=== PATIENT | female | born 1965 | race Caucasian/White ===

== ENCOUNTER 2022-12-12 14:46 | Emergency (ER) | payer BC, SELFPAY ==
[2022-12-12 15:08] VITALS: BP 149/89; PULSE 72; RESP 18; TEMP 37.4; O2SAT 100; BMI 21.4
--- NOTE | 2022-12-12 16:01 | CRLHL7_ITS ---
For Patients: As a result of the Cures Act, medical imaging exams and procedure reports are released immediately into your electronic medical record. You may view this report before your referring provider. If you have questions, please contact your health care provider. HISTORY: Injury. Fall in the shower. TECHNIQUE: Frontal view the chest and 2 views of the left ribs. COMPARISON: None. FINDINGS: No airspace consolidation. No pleural effusion or pneumothorax. Pulmonary vasculature and cardiomediastinal silhouette are unremarkable. No left rib fractures. IMPRESSION: No acute findings. No left rib fractures. Dictated by Jordy Troncoso MD @ 12/12/2022 4:55:27 PM (Electronically Signed)
[2022-12-12 16:46] VITALS: BP 156/85; PULSE 62; O2SAT 100
--- NOTE | 2022-12-12 16:53 | ED.GENADULT ---
HPI - General Adult General Chief complaint: Back Injury/Pain Stated complaint: Fell this morning, injured upper back Time Seen by Provider: 12/12/22 15:44 Source: patient Mode of arrival: ambulatory Limitations: no limitations History of Present Illness HPI narrative: Patient is a 57-year-old female coming in today complaining of left-sided upper back pain. She states that she was in the shower this morning she slipped and fell backwards hitting her left upper back on the built-in bench in the shower. She states that she has difficulty taking deep breaths. She denies other injury. No neck or central back pain. She has been walking and talking normally since she fell earlier this morning which was several hours ago. She has no headache, blurry vision, nausea vomiting. She is not short of breath. She denies any buttocks or abdominal discomfort. No anterior chest pain. Related Data Home Medications Medication Instructions Recorded Confirmed candesartan 4 mg tablet 2 mg PO DAILY 12/12/22 12/12/22 estradiol 0.025 mg/24 hr 12/12/22 semiweekly transdermal patch levothyroxine 50 mcg tablet mcg 12/12/22 mycophenolate mofetil 250 mg mg PO 12/12/22 capsule progesterone micronized 100 mg mg 12/12/22 capsule sertraline 25 mg tablet 12.5 mg 12/12/22 Allergies Allergy/AdvReac Type Severity Reaction Status Date / Time No Known Drug Allergies Allergy Verified 12/12/22 15:13 Review of Systems Status of ROS: Reports: 10 or more systems reviewed and unremarkable except as noted in History and below PFSH PFS Social History Smoking Status: Never smoker How often do you have a drink containing alcohol: never AUDIT-C Alcohol total score: 0 Non-prescribed substance use: denies use Exam Narrative: Exam Narrative: Well-nourished well-developed patient in no acute distress. Alert and oriented. Answers questions appropriately. Mood and affect are appropriate. Thoughts are goal oriented and rational. No tangential or magical thinking noted. Patient speaks in full sentences without needing to catch her breath. Speech is not slurred or pressured. GCS is 15. HEENT: Normocephalic atraumatic. Pupils are equally round reactive to light. Extraocular muscles are intact. Conjunctivae are moist without any icterus noted. Moist mucous membranes. Posterior pharynx is normal. Neck is soft. She has full range of motion with flexion, extension, side way bending and rotation. She has no tenderness to palpation at the cervical spine. Cardiovascular: Heart is regular rate and rhythm S1 and S2 are present without any murmurs. Lungs: Clear to auscultation bilaterally no wheezes rhonchi or rales are appreciated. Patient takes deep breaths but it does cause her discomfort in the left upper back. Abdomen: Soft and nontender nondistended with normal bowel sounds. Skin: Well perfused without any obvious rashes. Back: No tenderness to palpation over the thoracic or lumbar spine. She has no CVA tenderness bilaterally. She does have tenderness over two ribs on the posterolateral left chest wall. Const: Vital Signs, click to edit/add: Vital Signs - 24 hr 12/12/22 15:08 12/12/22 16:46 Temperature 99.3 F Pulse Rate [Left P ulse Oximeter] 72 62 Respiratory Rate 18 Blood Pressure [Ri t Upper Arm] 149/89 H 156/85 H Pulse Oximetry 100 100 Oxygen Delivery Me thod Room Air Room Air Course Course Hospital Course: Rib x-rays were done, read by me, do not show any acute fracture. Radiologic over-read in agreement. Vital Signs Vital signs: Initial Vital Signs Temperature 99.3 F 12/12/22 15:08 Temperature Source Temporal Artery Scan 12/12/22 15:08 Pulse Rate 72 12/12/22 15:08 Respiratory Rate 18 12/12/22 15:08 Blood Pressure 149/89 H 12/12/22 15:08 Blood Pressure Mean 109 12/12/22 15:08 Blood Pressure Position Sitting 12/12/22 15:08 Pulse Oximetry 100 12/12/22 15:08 Oxygen Delivery Method 12/12/22 15:08 Vital Signs Temperature 99.3 F 12/12/22 15:08 Pulse Rate 72 12/12/22 15:08 Respiratory Rate 18 12/12/22 15:08 Blood Pressure 149/89 H 12/12/22 15:08 Pulse Oximetry 100 12/12/22 15:08 Oxygen Delivery Method 12/12/22 15:08 Temperature 99.3 F 12/12/22 15:08 Pulse Rate 62 12/12/22 16:46 Respiratory Rate 18 12/12/22 15:08 Blood Pressure 156/85 H 12/12/22 16:46 Pulse Oximetry 100 12/12/22 16:46 Oxygen Delivery Method 12/12/22 16:46 Medical Decision Making MDM Narrative Medical decision making narrative: 57-year-old female status post fall with posterolateral left-sided rib pain. Certainly could be a contusion versus an occult fracture that were not catching on x-ray. Treatment at this time is the same. We discussed Tylenol, heating pads, and narcotic pain medication as needed. Discussed reasons for follow-up. Patient had no other questions Imaging Data Rib x-ray: Attestation: I have reviewed the pertinent imaging results. Radiologist's impression: TECHNIQUE: Frontal view the chest and 2 views of the left ribs. COMPARISON: None. FINDINGS: No airspace consolidation. No pleural effusion or pneumothorax. Pulmonary vasculature and cardiomediastinal silhouette are unremarkable. No left rib fractures. IMPRESSION: No acute findings. No left rib fractures. Discharge Plan Discharge Clinical Impression: Back pain Patient Disposition: Home, Self-Care Condition: Stable Additional Instructions: Okay to use Tylenol or narcotic pain medication as needed. Use heat to the upper back as needed. Do not apply heat directly to skin. Narcotic pain medications can cause constipation, recommend a daily stool softener while using medications. Narcotic pain medications can also be addicting, use sparingly and only as needed. Make sure to take deep breaths throughout the day to expand your lungs. Hydrocodone sent to [facility] Prescriptions: No Action candesartan 4 mg tablet 2 mg PO DAILY mycophenolate mofetil 250 mg capsule PO levothyroxine 50 mcg tablet sertraline 25 mg tablet 12.5 mg progesterone micronized 100 mg capsule estradiol 0.025 mg/24 hr patch semiweekly Label Comments: APPLY 1 PATCH TOPICALLY TO THE SKIN 2 TIMES A WEEK Follow Up/Referrals: Marjan Angulo PA [Primary Care Provider] - Stand Alone Forms: [employer] Info Instructions
== END 2022-12-12 17:15 | disposition home or self-care (01) ==
PROVIDERS: Emergency Provider Family Medicine; PCP Physician Assistant
DX: M54.9 Dorsalgia, unspecified (principal); R07.81 Pleurodynia
CPT/HCPCS: 71101; 99283; 99284

== ENCOUNTER 2024-11-23 10:00 | Outpatient (RCR) | payer OTHER, SELFPAY | END 2025-03-23 23:59 | disposition home or self-care (01) | PROVIDERS: PCP Physician Assistant; Visit Provider Family Medicine | DX: M54.6 Pain in thoracic spine (principal); G89.29 Other chronic pain; Z51.89 Encounter for other specified aftercare | CPT/HCPCS: 97110; 97162 ==

== ENCOUNTER 2025-03-25 22:37 | Emergency (ER) | payer OTHER, SELFPAY ==
--- OUTSIDE RECORDS SUMMARY | 2025-02-20 08:45 | XMS_ITS | Encounter Summary ---
Author Organization [facility] Address [address] [place] [address] Care Team Providers Care Voting Machine Mechanic Name Role Phone Elsewhere, Pcp Primary Care Provider Unavailabl e Reason for Visit * Reason Onset Date Comments Pre-visit Intake 02/20/2025 * Appointment Request (Routine) - Authorized Specialty Diagnoses / Procedures Referred By Juan sosa Referred To Contact Gynecology Referral ID Status Reason Start Date Expiration Date V isits Requested Visits Authorized [id number] Authorized 11/13/2024 11/13/2025 1 1 Encounter Details Date Type Department Care Team (Latest Contact Info) Description 02/20/2025 8:45 AM CDT Clinical Communication Virtual Review in [address] [phone] Pre-visit Intake Social History Tobacco Use Types Packs/Day Years Used Date Smoking Tobacco: Never Passive Smoke Exposure: Past Smokeless Tobacco: Never Alcohol Use Standard Drinks/Week Comments Never 0 (1 standard drink = 0.6 oz pur e alcohol) [facility] Utilities Answer Date Recorded In the past 12 months has [facility], gas, oil, or water [employer] threatened to shut off services in your home? No 02/18/2025 Humiliation, Afraid, Rape, and Kick questionnair e Answer Date Recorded Within the last year, have y ou been afraid of your partner or ex-partner? No 09/23/2022 Within the last year, have y ou been humiliated or emotionally abused in other ways by your partner or ex-partner? No Within the last year, have y ou been kicked, hit, slapped, or otherwise physically hurt by your partner or ex-partner? No 09/23/2022 Within the last year, have y ou been raped or forced to have any kind of sexual activity by your partner or ex-partner? No 09/23/2022 Social Connection and Isolation Panel [NHANES] A nswer Date Recorded In a typical week, how many times do you talk on the phone with family, friends, or neighbors? Once a week 09/23/2022 How often do you get together with friends or re latives? Once a week 09/23/2022 How often do you attend druze or mandaeism serv ices? Never 09/23/2022 Do you belong to any clubs o r organizations such as druze groups, unions, fraternal or athletic groups, or school groups? No 09/23/2022 How often do you attend meet ings of the clubs or organizations you belong to? Never 09/23/2022 Are you , , di vorced, , never , or living with a partner? 09/23/2022 AUDIT-C Answer Date Recorded Q1: How often do you have a drink containing alc ohol? Never 09/23/2022 Average Number of Drinks Not on file 022 Frequency of Binge Drinking Not on file 09/02 Overall Financial Resource Strain (CARDIA) Answe r Date Recorded How hard is it for you to pa y for the very basics like food, housing, medical care, and heating? Not hard at all 10/03/2023 [facility] - Occupational Stress Questionnaire Answer Date Recorded Do you feel stress - tense, restless, nervous, or anxious, or unable to sleep at night because your mind is troubled all the time - these days? Rather much 09/23/2022 Exercise Vital Sign Answer Date Recorde d On average, how many days pe r week do you engage in moderate to strenuous exercise (like a brisk walk)? 5 days 02/18/2025 On average, how many minutes do you engage in exercise at this level? 40 min 02/18/2025 Hunger Vital Sign Answer Date Recorded Within the past 12 months, y ou worried that your food would run out before you got the money to buy more. Never true 02/19/20 25 Within the past 12 months, t he food you bought just didn't last and you didn't have money to get more. Never true 02/18/2025 PRAPARE - Transportation Answer Date Re corded In the past 12 months, has l ack of transportation kept you from medical appointments or from getting medications? No 01/31 In the past 12 months, has l ack of transportation kept you from meetings, work, or from getting things needed for daily living? No 02/18/2025 Nutrition Answer Date Recorded On average, how many serving s of fruits and vegetables do you eat per day (serving size is equal to 1 cup or approximately the size of a tennis ball)? 0-2 02/18/2025 Dental Answer Date Recorded Dental: Regular Dentist Yes 09/23/20 Employment Answer Date Recorded Employment status Retired 02/18/2025 Housing Stability Answer Date Recorded What is your living situation today? I have a [facility] place to live 02/18/2025 Education Answer Date Recorded What is the highest level of school you have completed or the highest degree you have received? 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 [address] [place] [address] documented as of this encounter Visit Diagnoses Not on filedocumented in this encounter Care Teams Voting Machine Mechanic Relationship Specialty Start Date End Date Elsewhere, Pcp PCP - General Family Medicine 07/11/21 documented as of this encounter
--- OUTSIDE RECORDS SUMMARY | 2025-02-20 08:45 | XMS_ITS | Encounter Summary ---
Author Organization [facility] Address [address] [place] [address] Care Team Providers Care Chopper Feeder Name Role Phone Elsewhere, Pcp Primary Care Provider Unavailabl e Reason for Visit * Reason Onset Date Comments Pre-visit Intake 02/20/2025 * Appointment Request (Routine) - Authorized Specialty Diagnoses / Procedures Referred By Juan sosa Referred To Contact Gynecology Referral ID Status Reason Start Date Expiration Date V isits Requested Visits Authorized [id number] Authorized 11/13/2024 11/13/2025 1 1 Encounter Details Date Type Department Care Team (Latest Contact Info) Description 02/20/2025 8:45 AM CDT Clinical Communication Virtual Review in [address] [address] Pre-visit Intake Social History Tobacco Use Types Packs/Day Years Used Date Smoking Tobacco: Never Passive Smoke Exposure: Past Smokeless Tobacco: Never Alcohol Use Standard Drinks/Week Comments Never 0 (1 standard drink = 0.6 oz pur e alcohol) [facility] Utilities Answer Date Recorded In the past 12 months has [facility] [employer], gas, oil, or water [employer] threatened to shut off services in your [...] week 09/23/2022 How often do you attend mormonism or quaker serv ices? Never 09/23/2022 Do you belong to any clubs o r organizations such as mormonism groups, unions, fraternal or athletic groups, or [...] and heating? Not hard at all 10/03/2023 [facility] - Occupational Stress [...] your living situation today? I have a [facility] place to live 02/18/2025 Education Answer Date Recorded What is the highest level of school you have completed or the highest degree you have received? 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 [address] [place] [address] documented as of this encounter Visit Diagnoses Not on filedocumented in this encounter Care Teams Chopper Feeder Relationship Specialty Start Date End Date Elsewhere, Pcp PCP - General Family Medicine 07/11/21 documented as of this encounter
--- OUTSIDE RECORDS SUMMARY | 2025-02-23 09:15 | XMS_ITS | Encounter Summary ---
Author Organization [facility] Address [address] [place] [address] Care Team Providers Care Equipment Tester Name Role Phone Elsewhere, Pcp Primary Care Provider Unavailabl e Reason for Referral * Outpatient (Routine) - Authorized Specialty Diagnoses / Procedures Referred By Contac t Referred To Contact Obstetrics and Gynecology Soraya Garcia APRN, C.N.PAyah, D.N.P. [address] [place] [phone] Phone: tel: fax: [facility] Referral ID Status Reason Start Date Expiration Date V isits Requested Visits Authorized [id number] Authorized 02/23/2025 08/25/2026 1 1 Reason for Visit * Outpatient (Routine) - Closed Specialty Diagnoses / Procedures Referred By Contac t Referred To Contact Obstetrics and Gynecology Soraya Garcia APRN, C.N.P., D.N.P. [address] [place] [phone] Phone: tel: fax: [facility] Referral ID Status Reason Start Date Expiration Date Visits Re quested Visits Authorized [id number] Closed 10/08/2023 10/07/2026 1 1 Encounter Details Date Type Department Care Team (Late st Contact Info) Description 02/23/2025 9:15 AM CDT Office Visit Department of Obstetrics and Gynecology in [place], [place] [address] [place] [address] Soraya Garcia APRN, C.N.P., D.N.P. [address] [place] [address] Counseling Hormone Replacement Therapy (Primary Dx); Atrophy Vagina Due To Estrogen Deficiency Social History Tobacco Use Types Packs/Day Years Used Date Smoking Tobacco: Never Passive Smoke Exposure: Past Smokeless Tobacco: Never Alcohol Use Standard Drinks/Week Comments Never 0 (1 standard drink = 0.6 oz pur e alcohol) [facility] Utilities Answer Date Recorded In the past 12 months has e [employer], gas, oil, or water [employer] threatened to shut off services in your [...] week 09/23/2022 How often do you attend sabianist or restorationist serv ices? Never 09/23/2022 Do you belong to any clubs o r organizations such as sabianist groups, unions, fraternal or athletic groups, or [...] and heating? Not hard at all 10/03/2023 [facility] - Occupational [...] money to buy more. Never true 02/19/20 Within the past 12 months, t he [...] your living situation today? I have a [facility] [facility] place to live 02/18/2025 Education Answer Date Recorded What is the highest level of school you have completed or the highest degree you have received? 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 - 02/23/2025 9:15 AM CDT SUBJECTIVE CHIEF COMPLAINT/REASON FOR VISIT Preventative WINE MAKER Exam HISTORY OF PRESENT ILLNESS Kassie George is a pleasant 59 y.o. who presents today to the Division of Gynecology for a preventative WINE MAKER exam. I last saw her in October of 2023 for similar preventative exam. Kassie has been on hormone therapy (Vivelle-Dot 0.025mg patch twice weekly + 100mg prometrium daily) since 2017. She would like to continue this current regimen. History of Present Illness Kassie, on hormone replacement therapy with estradiol 0.025 patch twice weekly and Prometrium 100mg nightly, presents for a routine follow-up. She reports satisfaction with the current regimen and wishes to continue. She experiences mild hot flashes and night sweats, which are manageable. She alsonotes vaginal dryness, which is worse when she misses a dose of her medication, but is manageable with lubricants. She denies any vaginal bleeding, odor, itching, or discharge. She had a transient vaginal sore, which she describes as a 'pimple,' that resolved spontaneously about a month ago. She is due for breast imaging today and a Pap smear next year. Sexually active:Yes STI concerns or known exposures: NO She is not having any vaginal or vulvar concerns at this time. She denies odor, itching, or discharge that is unusual for her. She denies breast concerns, lumps, or bumps that she has noticed. Last pap smear: 08/2021 Result: NILM and HPV negative REVIEW OF SYSTEMS History Review OBJECTIVE Social History Socioeconomic History Marital status: Spouse name: Not on file Number of children: Not on file Years of education: Not on file Highest education level: Associate degree: occupational, technical, or vocational program Occupational History Not on file Tobacco Use Smoking status: Never Passive exposure: Past Smokeless tobacco: Never Vaping Use Vaping status: never used Substance and Sexual Activity Alcohol use: Never Drug use: Never Sexual activity: Yes Partners: Male control/protection: Vasectomy Other Topics Concern Not on file Social History Narrative Not on file Social Drivers of Health Food Insecurity: No Food Insecurity (02/18/2025) Hunger Vital Sign Worried About Running Out of Food in the Last Year: Never true Ran Out of Food in the Last Year: Never true Transportation Needs: No Transportation Needs (02/18/2025) PRAPARE - Transportation Lack of Transportation (Medical): No Lack of Transportation (Non-Medical): No Physical Activity: Sufficiently Active (02/18/2025) Exercise Vital Sign Days of Exercise per Week: 5 days Minutes of Exercise per Session: 40 min Intimate Partner Violence: Not At Risk (09/23/2022) Humiliation, Afraid, Rape, and Kick questionnaire Fear of Current or Ex-Partner: No Emotionally Abused: No Physically Abused: No Sexually Abused: No Housing Stability: Low Risk (02/18/2025) Housing Stability Housing: Living Situation: I have a steady place to live PHYSICAL EXAM General: Healthy-appearing female in no acute distress Psych: Appropriate affect. Answers questions appropriately. Respiratory: Breaths Unlabored. IRP Diagnosis Plan 1. Counseling Hormone Replacement Therapy 2. Atrophy Vagina Due To Estrogen Deficiency Assessment & Plan Woman's Wellness Exam Routine wellness exam conducted. Breast imaging scheduled for today. Pap smear last conducted in August 2021, next due in August 2026. - Perform breast imaging today. - Schedule Pap smear for August 2026. Hormone Replacement Therapy Current hormone replacement therapy effective with occasional mild hot flashes and night sweats. She prefers to continue current regimen. - Continue Vivelle-dot 0.025 mg transdermal patch twice weekly. - Continue Prometrium 100 mg orally daily. - Refill hormone prescriptions for one year. Vaginal dryness Mild vaginal dryness manageable with lubricants. Symptoms worsen if hormone doses are missed. - Consider vaginal estrogen cream if dryness becomes unmanageable. 25 total time for today's visit 20 minutes were spent in direct [id number] counseling and coordination of care. 0 procedure time Soraya Garcia APRN, Micheline., D.N.P. documented in this encounter Plan of Treatment Upcoming Encounters Date Type Department Care Team (Late st Contact Info) Description 04/16/2025 2:00 PM CDT Telemedicine Division of Nephrology and Hypertension in [place], [place] [address] [place] [address] Jeremías Mehta M.D., Ph.D. [address] [place] [address] Scheduled Referrals Name Type Priority Associated Diagnoses Order Schedule Obstetrics and Gynecology office visit (clinic) Outpatient Referral Routine Expected: 02/23/2026, Expires: 05/25/2026 documented as of this encounter Visit Diagnoses Diagnosis Counseling Hormone Replacement Therapy- Primary Atrophy Vagina Due To Estrogen Deficiency documented in this encounter Care Teams Equipment Tester Relationship Specialty Start Date End Date Elsewhere, Pcp PCP - General Family Medicine 07/11/21 documented as of this encounter
--- OUTSIDE RECORDS SUMMARY | 2025-02-23 09:15 | XMS_ITS | Encounter Summary ---
Author Organization [facility] Address [address] [place] [address] Care Team Providers Care Veterinarian Helper Name Role Phone Elsewhere, Pcp Primary Care Provider Unavailabl e Reason for Referral * Outpatient (Routine) - Authorized Specialty Diagnoses / Procedures Referred By Contac t Referred To Contact Obstetrics and Gynecology Soraya Garcia APRN, C.N.PAyah, D.N.P. [address] [place] [phone] Phone: tel: fax: [facility] Referral ID Status Reason Start Date Expiration Date V isits Requested Visits Authorized [id number] Authorized 02/23/2025 08/25/2026 1 1 Reason for Visit * Outpatient (Routine) - Closed Specialty Diagnoses / Procedures Referred By Contac t Referred To Contact Obstetrics and Gynecology Soraya Garcia APRN, C.N.P., D.N.P. [address] [place] [phone] Phone: tel: fax: [facility] Referral ID Status Reason Start Date Expiration Date Visits Re quested Visits Authorized [id number] Closed 10/08/2023 10/07/2026 1 1 Encounter Details Date Type Department Care Team (Late st Contact Info) Description 02/23/2025 9:15 AM CDT Office Visit Department of Obstetrics and Gynecology in [place], [place] [address] [place] [address] Soraya Garcia APRN, C.N.P., D.N.P. [address] [place] [address] Counseling Hormone Replacement Therapy (Primary Dx); Atrophy Vagina Due To Estrogen Deficiency Social History Tobacco Use Types Packs/Day Years Used Date Smoking Tobacco: Never Passive Smoke Exposure: Past Smokeless Tobacco: Never Alcohol Use Standard Drinks/Week Comments Never 0 (1 standard drink = 0.6 oz pur e alcohol) [facility] Utilities Answer Date Recorded In the past 12 months has e [employer], gas, oil, or water [employer] threatened to shut off services in your [...] week 09/23/2022 How often do you attend lutheran or methodist serv ices? Never 09/23/2022 Do you belong to any clubs o r organizations such as lutheran groups, unions, fraternal or athletic groups, or [...] and heating? Not hard at all 10/03/2023 [facility] of Occupat ional Health - Occupational [...] your living situation today? I have a [facility] place to live 02/18/2025 Education Answer Date Recorded What is the highest level of school you have completed or the highest degree you have received? Associate degree: occupational, technical, or vocational program 05/12/2020 Comments No Sex and Gender Information Value Date Recorded Sex Assigned at Female 04/24/2018 12:53 PM CDT Legal Sex Female 6:11 AM BREAD ROOM HAND Gender Identity Female 04/24/2018 12:53 PM CDT Sexual Orientation Straight 04/24/2018 12 :53 PM CDT documented as of this encounter Consult Notes * Soraya Garcia, MIYA, C.N.P., D.N.P. - 02/23/2025 9:15 AM CDT SUBJECTIVE CHIEF COMPLAINT/REASON FOR VISIT Preventative COSTUME MAKER Exam HISTORY OF PRESENT ILLNESS Kassie George is a pleasant 59 y.o. who presents today to the Division of Gynecology for a preventative COSTUME MAKER exam. I last saw her in [...] visit 20 minutes were spent in direct [id number] counseling and coordination of care. 0 procedure time Soraya Garcia APRN, Micheline., D.N.P. documented in this encounter Plan of Treatment Upcoming Encounters Date Type Department Care Team (Late st Contact Info) Description 04/16/2025 2:00 PM CDT Telemedicine Division of Nephrology and Hypertension in [place], [place] [address] [place] [address] Jeremías Mheta M.D., Ph.D. [address] [place] [address] Scheduled Referrals Name Type Priority Associated Diagnoses Order Schedule Obstetrics and Gynecology office visit (clinic) Outpatient Referral Routine Expected: 02/23/2026, Expires: 05/25/2026 documented as of this encounter Visit Diagnoses Diagnosis Counseling Hormone Replacement Therapy- Primary Atrophy Vagina Due To Estrogen Deficiency documented in this encounter Care Teams Veterinarian Helper Relationship Specialty Start Date End Date Elsewhere, Pcp PCP - General Family Medicine 07/11/21 documented as of this encounter
--- OUTSIDE RECORDS SUMMARY | 2025-02-23 10:00 | XMS_ITS | Encounter Summary ---
Author Organization [facility] Address [address] [place] [address] Care Team Providers Care Automobile Wrecker Name Role Phone Elsewhere, Pcp Primary Care Provider Unavailabl e Reason for Referral * Outpatient (Routine) - Closed Specialty Diagnoses / Procedures Referred By Contac t Referred To Contact Diagnoses Maintenance Health Adult Procedures BI Breast Screening Bilateral with Tomosynthesis Soraya Garcia APRN, C.N.P., D.N.P. [address] [place] [phone] Phone: tel: fax: [facility] Referral ID Status Reason Start Date Expiration Date Visits Re quested Visits Authorized [id number] Closed 10/08/2023 10/07/2024 1 1 Reason for Visit * Outpatient (Routine) - Closed Specialty Diagnoses / Procedures Referred By Contac t Referred To Contact Diagnoses Maintenance Health Adult Procedures BI Breast Screening Bilateral with Tomosynthesis Soraya Garcia APRN, C.N.P., D.N.P. [address] [place] [phone] Phone: tel: fax: [facility] Referral ID Status Reason Start Date Expiration Date Visits Re quested Visits Authorized [id number] Closed 10/08/2023 10/07/2024 1 1 Encounter Details Date Type Department Care Team (Latest Contact Info) Description 02/23/2025 10:00 AM CDT - 02/23/2025 10:41 AM CDT Hospital Encounter Department of Radiology in [place], [place] 200 [place] [address] Soraya Garcia APRN, C.N.P., D.N.P. 200 [place] [address] Maintenance Health Adult Discharge Disposition: Home or Self Care Social History Tobacco Use Types Packs/Day Years Used Date Smoking Tobacco: Never Passive Smoke Exposure: Past Smokeless Tobacco: Never Alcohol Use Standard Drinks/Week Comments Never 0 (1 standard drink = 0.6 oz pur e alcohol) [facility] Utilities Answer Date Recorded In the past 12 months has e electric, gas, oil, or water [employer] threatened to shut off services in your [...] week 09/23/2022 How often do you attend evangelical or episcopal serv ices? Never 09/23/2022 Do you belong to any clubs o r organizations such as evangelical groups, unions, fraternal or athletic groups, or [...] and heating? Not hard at all 10/03/2023 [facility] of Occupat ional Health - Occupational Stress [...] your living situation today? I have a [facility] place to live 02/18/2025 Education Answer Date Recorded What is the highest level of school you have completed or the highest degree you have received? 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 02/17/2011 candesartan (ATACAND) 4 mg tablet Take 2 mg by mouth daily. estradioL (Vivelle-Dot) 0.025 mg/[address] 1 patch on the skin 2 (two) times a week. 32 patch 3 02/26/2025 levothyroxine sodium (TIROSINT) 50 mcg capsule 1 tablet daily 12/12/2022 loratadine (CLARITIN) 10 mg tablet Take 1 tablet by mouth as needed. As needed 03/19/2014 metroNIDAZOLE (MetroCream) 0.75 % cream Apply 1 Application topically as needed. 03/29/2024 multivitamin tablet Take 1 tablet by mouth daily. 03/20/2016 mycophenolate (CellCept) 250 mg capsuleIndications: 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),Vasculitis Take 1 capsule (250 mg total) by mouth 2 (two) times a day. Do not break, cut, or open capsules. 300 capsule 3 09/01/2024 omega 0-qfm-kkn-fish oil 1,200 (144-216) mg capsule 01/31/2020 progesterone (Prometrium) 100 mg capsule Take 1 capsule (100 mg total) by mouth daily. 90 capsule 3 02/23/2025 documented as of this encounter Plan of Treatment Upcoming Encounters Date Type Department Care Team (Late st Contact Info) Description 04/16/2025 2:00 PM CDT Telemedicine Division of Nephrology and Hypertension in [place], [place] [address] [place] [address] Jeremías Mehta M.D., Ph.D. [address] [place] [address] documented as of this encounter Procedures Procedure Name Priority Date/Time Associated Diagnosis Comments BI BREAST SCREENING BILATERAL WITH TOMOSYNTHESIS RAD - Routine (most inpatients and all outpatients) 02/23/2025 10:36 AM CDT Maintenance Health Adult documented in this encounter Results * BI Breast Screening Bilateral with Tomosynthesis (02/23/2025 10:36 AM CDT) Anatomical Region Laterality Modality Breast, Breast Imaging RST L OS, Breast Imaging ARZ LOS, Breast Imaging FLA LOS Bilateral Mammography Impressions 02/23/2025 12:28 PM CDT Benign. RECOMMENDATION: Annual Screening Mammogram Patient has dense breast tissue and may benefit from supplemental screening. ASSESSMENT: BI-RADS: 2: Benign. Narrative 02/23/2025 12:28 PM CDT EXAM: BI BREAST SCREENING BILATERAL WITH TOMOSYNTHESIS Current study was evaluated with a Computer Aided Detection (CAD) system. INDICATION: Screening mammogram. COMPARISON: Prior exam(s) were available and reviewed for comparison. DENSITY: d. The breast(s) are extremely dense, which lowers the sensitivity of mammography. FINDINGS: Multiple bilateral similar-appearing fluctuant masses consistent with cysts, as demonstrated on multiple prior ultrasounds. No interval mammographic findings of malignancy. Procedure Note Johnny Koch M.D. - 02/23/2025 EXAM: BI BREAST SCREENING BILATERAL WITH TOMOSYNTHESIS Current study was evaluated with a Computer Aided Detection (CAD) system. INDICATION: Screening mammogram. COMPARISON: Prior exam(s) were available and reviewed for comparison. DENSITY: d. The breast(s) are extremely dense, which lowers thesensitivity of mammography. FINDINGS: Multiple bilateral similar-appearing fluctuant masses consistentwith cysts, as demonstrated on multiple prior ultrasounds. No intervalmammographic findings of malignancy. IMPRESSION: Benign. RECOMMENDATION: Annual Screening Mammogram Patient has dense breast tissue and may benefit from supplementalscreening. ASSESSMENT: BI-RADS: 2: Benign. us Soraya Garcia APRN, C.N.P., D.N.P. CORI BOUDREAUX Final Result documented in this encounter Visit Diagnoses Diagnosis Maintenance Health Adult documented in this encounter Care Teams Automobile Wrecker Relationship Specialty Start Date End Date Elsewhere, Pcp PCP - General Family Medicine 07/11/21 documented as of this encounter
--- OUTSIDE RECORDS SUMMARY | 2025-02-23 10:00 | XMS_ITS | Encounter Summary ---
Author Organization [facility] Address [address] [place] [address] Care Team Providers Care Digital Performance Analyst Name Role Phone Elsewhere, Pcp Primary Care Provider Unavailabl e Reason for Referral * Outpatient (Routine) - Closed Specialty Diagnoses / Procedures Referred By Contac t Referred To Contact Diagnoses Maintenance Health Adult Procedures BI Breast Screening Bilateral with Tomosynthesis Soraya Garcia APRN, C.N.P., D.N.P. [address] [place] [phone] Phone: tel: fax: [facility] Referral ID Status Reason Start Date Expiration Date Visits Re quested Visits Authorized [id number] Closed 10/08/2023 10/07/2024 1 1 Reason for Visit * Outpatient (Routine) - Closed Specialty Diagnoses / Procedures Referred By Contac t Referred To Contact Diagnoses Maintenance Health Adult Procedures BI Breast Screening Bilateral with Tomosynthesis Soraya Garcia APRN, C.N.P., D.N.P. [address] [place] [phone] Phone: tel: fax: [facility] Referral ID Status Reason Start Date Expiration Date Visits Re quested Visits Authorized [id number] Closed 10/08/2023 10/07/2024 1 1 Encounter Details Date Type Department Care Team (Latest Contact Info) Description 02/23/2025 10:00 AM CDT - 02/23/2025 10:41 AM CDT Hospital Encounter Department of Radiology in [place], [place] 200 [place] [address] Soraya Garcia APRN, C.N.P., D.N.P. 200 [place] [address] Maintenance Health Adult Discharge Disposition: Home or Self Care Social History Tobacco Use Types Packs/Day Years Used Date Smoking Tobacco: Never Passive Smoke Exposure: Past Smokeless Tobacco: Never Alcohol Use Standard Drinks/Week Comments Never 0 (1 standard drink = 0.6 oz pur e alcohol) [facility] Utilities Answer Date Recorded In the past 12 months has e electric, gas, oil, or water [employer] threatened to shut off services in [...] week 09/23/2022 How often do you attend oriental orthodox or sikh serv ices? Never 09/23/2022 Do you belong to any clubs o r organizations such as oriental orthodox groups, unions, fraternal or athletic groups, or [...] and heating? Not hard at all 10/03/2023 [facility] of Occupat ional Health - Occupational Stress [...] PM CDT Legal Sex Female 6:11 AM HEALTH SPECIALIST Gender Identity Female 04/24/2018 12:53 PM CDT [...] open capsules. 300 capsule 3 09/01/2024 omega 8-grz-kxq-fish oil 1,200 (144-216) mg capsule 01/31/2020 progesterone (Prometrium) 100 mg capsule Take 1 capsule (100 mg total) by mouth daily. 90 capsule 3 02/23/2025 documented as of this encounter Plan of Treatment Upcoming Encounters Date Type Department Care Team (Late st Contact Info) Description 04/16/2025 2:00 PM CDT Telemedicine Division of Nephrology and Hypertension in [place], [place] [address] [place] [address] Jeremías Mehta M.D., Ph.D. [address] [place] [address] documented as of this encounter Procedures Procedure [...] supplementalscreening. ASSESSMENT: BI-RADS: 2: Benign. us Soraya Gacria APRN, C.N.P., D.N.P. CORI BOUDREAUX Final Result documented in this encounter Visit Diagnoses Diagnosis Maintenance Health Adult documented in this encounter Care Teams Digital Performance Analyst Relationship Specialty Start Date End Date Elsewhere, Pcp PCP - General Family Medicine 07/11/21 documented as of this encounter
--- OUTSIDE RECORDS SUMMARY | 2025-02-23 10:42 | XMS_ITS | Encounter Summary ---
Author Organization [facility] Address [address] [place] [address] Care Team Providers Care Siderographist Name Role Phone Elsewhere, Pcp Primary Care Provider Unavailabl e Encounter Details Date Type Department Care Team (Latest Contact Info) Description 02/23/2025 10:42 AM CDT - 02/23/2025 11:59 PM CDT Hospital Encounter Department of Laboratory Medicine and Pathology, [facility] in [place], [place] [address] [place] [phone] Jeremías Mehta M.D., Ph.D. 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 Never 09/23/2022 Do you belong to any clubs o r organizations such as buddhist groups, unions, fraternal or athletic groups, or [...] and heating? Not hard at all 10/03/2023 [facility] - Occupational Stress Questionnaire Answer Date [...] your living situation today? I have a [facility] place to live 02/18/2025 Education Answer Date Recorded What is the highest level of school you have completed or the highest degree you have received? 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 300 capsule 3 09/01/2024 omega 2-dkb-xzj-fish oil 1,200 (144-216) mg capsule 01/31/2020 progesterone (Prometrium) 100 mg capsule Take 1 capsule (100 mg total) by mouth daily. 90 capsule 3 02/23/2025 documented as of this encounter Plan of Treatment Upcoming Encounters Date Type Department Care Team (Late st Contact Info) Description 04/16/2025 2:00 PM CDT Telemedicine Division of Nephrology and Hypertension in [place], [place] [address] [place] [phone] Jeremías Mehta M.D., Ph.D. 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 LAB URINE ORDERA BLES Final Result [facility] [address] [place] [address], [facility] DTL [facility] [address] [place] [address] * (ABNORMAL) Creatinine Clearance, Serum and 24 hour Urine (03/12/2025 9:10 AM CDT) Creatinine 1.76(H) 0.59 - 1.04 mg/dL 03/12/2025 10:55 AM CDT DTL Estimated GFR (eGFR) 33(L) >=60 mL/min/BSA 03/12/2025 10:55 AM CDT DTL Comment: Estimated GFR calculated using the 2020 CKD_EPI creatinine equation. Creatinine, U 26 mg/dL 03/12/2025 1:21 PM CDT DTL Collection Duration (h) 24 h 03/12/2025 12:20 PM CDT DTL Volume (mL) 3485 mL 03/12/2025 12:20 PM CDT DTL Creatinine Clearance 40(L) 56 - 131 mL/min/BSA 03/12/2025 1:21 PM CDT DTL Blood (Urine, 24 Hours) 03/12/2025 9:10 AM CDT 03/12/2025 10:29 AM CDT Narrative [facility] - 03/12/2025 1:21 PM CDT Specimen Information: Specimen ID: [id number] Specimen Type: Blood Specimen Collection Start Date: 03/12/2025 9:42 AM Specimen Received Date: 03/12/2025 10:29 AM Specimen ID: [id number] Specimen Type: Urine Specimen Collection Start Date: 03/12/2025 9:10 AM Specimen Received Date: 03/12/2025 12:20 PM Jeremías Mehta M.D., Ph.D. LAB URINE ORDERA BLES Final Result 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
--- OUTSIDE RECORDS SUMMARY | 2025-02-23 10:42 | XMS_ITS | Encounter Summary ---
Author Organization [facility] Address [address] [place] [address] Care Team Providers Care Central Supply Supervisor Name Role Phone Elsewhere, Pcp Primary Care Provider Unavailabl e Encounter Details Date Type Department Care Team (Latest Contact Info) Description 02/23/2025 10:42 AM CDT - 02/23/2025 11:59 PM CDT Hospital Encounter Department of Laboratory Medicine and Pathology, [facility] in [place], [place] [address] [place] [phone] Jeremías Mehta M.D., Ph.D. 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 Never 09/23/2022 Do you belong to any clubs o r organizations such as mandaeism groups, unions, fraternal or athletic groups, or [...] and heating? Not hard at all 10/03/2023 [facility] - Occupational Stress Questionnaire Answer Date [...] your living situation today? I have a [facility] place to live 02/18/2025 Education Answer Date Recorded What is the highest level of school you have completed or the highest degree you have received? 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 300 capsule 3 09/01/2024 omega 8-myv-tvs-fish oil 1,200 (144-216) mg capsule 01/31/2020 progesterone (Prometrium) 100 mg capsule Take 1 capsule (100 mg total) by mouth daily. 90 capsule 3 02/23/2025 documented as of this encounter Plan of Treatment Upcoming Encounters Date Type Department Care Team (Late st Contact Info) Description 04/16/2025 2:00 PM CDT Telemedicine Division of Nephrology and Hypertension in [place], [place] [address] [place] [phone] Jeremías Mehta M.D., Ph.D. [address] [place] [phone] documented as of this encounter Procedures Procedure [...] Ph.D. LAB URINE ORDERA BLES Final Result [facility] [place] [address] [place] [address], [facility] DTL [facility] [address] [place] [address] * (ABNORMAL) Creatinine Clearance, Serum and 24 [...] AM CDT 03/12/2025 10:29 AM CDT Narrative [facility] [place] - 03/12/2025 1:21 PM CDT Specimen Information: Specimen ID: [id number] Specimen Type: Blood Specimen Collection Start Date: 03/12/2025 9:42 AM Specimen Received Date: 03/12/2025 10:29 AM Specimen ID: [id number] Specimen Type: Urine Specimen Collection Start Date: 03/12/2025 9:10 AM Specimen Received Date: 03/12/2025 12:20 PM Jeremías Mehta M.D., Ph.D. 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
--- OUTSIDE RECORDS SUMMARY | 2025-03-12 09:00 | XMS_ITS | Encounter Summary ---
Author Organization [facility] Address [address] [place] [address] Care Team Providers Care [employer] Rep Name Role Phone Elsewhere, Pcp Primary Care Provider Unavailabl e Encounter Details Date Type Department Care Team (Latest Contact Info) Description 03/12/2025 9:00 AM CDT - 03/12/2025 9:09 AM CDT Hospital Encounter Department of Laboratory Medicine and Pathology, [facility] in [place], [place] [address] [place] [phone] Jeremías Mehta M.D., Ph.D. [address] [place] [phone] 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) Discharge Disposition: Home or Self Care Social History Tobacco Use Types Packs/Day Years Used Date Smoking Tobacco: Never Passive Smoke Exposure: Past Smokeless Tobacco: Never Alcohol Use Standard Drinks/Week Comments Never 0 (1 standard drink = 0.6 oz pur e alcohol) [facility] Utilities Answer Date Recorded In [...] week 09/23/2022 How often do you attend cheondoism or orthodoxy serv ices? Never 09/23/2022 Do you belong to any clubs o r organizations such as cheondoism groups, unions, fraternal or athletic groups, or [...] and heating? Not hard at all 10/03/2023 [facility] [place] [facility] - Occupational Stress Questionnaire Answer Date [...] your living situation today? I have a [facility] place to live 02/18/2025 Education Answer Date Recorded What is the highest level of school you have completed or the highest degree you have received? 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 300 capsule 3 09/01/2024 omega 7-pks-sav-fish oil 1,200 (144-216) mg capsule 01/31/2020 progesterone (Prometrium) 100 mg capsule Take 1 capsule (100 mg total) by mouth daily. 90 capsule 3 02/23/2025 documented as of this encounter Plan of Treatment Upcoming Encounters Date Type Department Care Team (Late st Contact Info) Description 04/16/2025 2:00 PM CDT Telemedicine Division of Nephrology and Hypertension in [place], [place] [address] [place] [phone] Jeremías Mehta M.D., Ph.D. [address] [phone] documented as of this encounter Procedures Procedure Name Priority Date/Time Associated Diagnosis Comments MYCOPHENOLIC ACID, S Routine 03/12/2025 9:42 AM CDT 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) SEDIMENTATION RATE, B Routine 03/12/2025 9:42 AM CDT 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) CBC WITH DIFFERENTIAL, B Routine 03/12/2025 9:42 AM CDT 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) C-REACTIVE PROTEIN (CRP), S/P Routine 03/12/2025 9:42 AM CDT 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) URIC ACID, S/P Routine 03/12/2025 9:42 AM CDT 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) COMPREHENSIVE METABOLIC PANEL, S/P Routine 03/12/2025 9:42 AM CDT 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) ANTINUCLEAR AB, HEP-2, SUBSTRATE, S Routine 03/12/2025 9:41 AM CDT 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) ANCA VASCULITIS PANEL, S Routine 03/12/2025 9:41 AM CDT 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) CYTOPLASMIC NEUTROPHIL ABS, S Routine 03/12/2025 9:41 AM CDT documented in this encounter Results * Sedimentation Rate (03/12/2025 9:42 AM CDT) Sedimentation Rate, B 8 2 - 22 mm/h 03/12/2025 11:33 AM CDT DTL Blood (Blood, Venous) 03/12/2025 9:42 AM CDT 03/12/2025 10:12 AM CDT Irma Shea.B.S. LAB BLOOD ADD-ON Fin al Result [facility] 200 [place] [address], [facility] 200 [place] [address] * CRP (C-Reactive Protein) (03/12/2025 9:42 AM CDT) Pathologist [facility] C-Reactive Protein (CRP), S <3.0 <5.0 mg/L 03/12/2025 10:54 AM CDT DTL Blood (Blood, Venous) 03/12/2025 9:42 AM CDT 03/12/2025 10:28 AM CDT Irma VazquezB.B.S. LAB BLOOD ADD-ON Fin al Result [facility] 200 [place] [address], [facility] DTL [facility] [address] [place] [address] * (ABNORMAL) Mycophenolic Acid (03/12/2025 9:42 AM CDT) Mycophenolic Acid 4.5(H) 1.0 - 3.5 mcg/mL 03/12/2025 4:38 PM CDT [facility] MPA Glucuronide 30(L) 35 - 100 mcg/mL 03/12/2025 4:38 PM CDT [facility] Comment: ----ADDITIONAL INFORMATION---- Target steady-state trough concentrations vary depending on the type of transplant, concomitant immunosuppression, clinical/institutional protocols, and time post-transplant. Results should be interpreted in conjunction with this clinical information and any physical signs/symptoms of rejection/toxicity. Testing performed by Liquid Chromatography-Tandem Mass Spectrometry (LC-MS/MS). This test was developed and its performance characteristics determined by [facility] in a manner consistent with CLIA requirements. This test has not been cleared or approved by the U.S. Food and Drug Administration. Blood (Blood, Venous) 03/12/2025 9:42 AM CDT 03/12/2025 12:48 PM CDT us Jeremías Mehta M.D., Ph.D. LAB BLOOD NON AD D-ON Final Result [facility] [address] [place] [address] [facility] [address] [place] [address] [place] [address] * Uric Acid (03/12/2025 9:42 AM CDT) Uric Acid, S 4.8 2.7 - 6.1 mg/dL 03/12/2025 10:54 AM CDT DTL Blood (Blood, Venous) 03/12/2025 9:42 AM CDT 03/12/2025 10:28 AM CDT us Jeremías Mehta M.D., Ph.D. LAB BLOOD ADD-ON Final Result [facility] [address] [place] [address], [facility] DTL [facility] [address] [place] [address] * (ABNORMAL) Comprehensive Metabolic Panel (03/12/2025 9:42 AM CDT) Potassium, S 4.5 3.6 - 5.2 mmol/L 03/12/2025 10:54 AM CDT DTL Sodium, S 133(L) 135 - 145 mmol/L 03/12/2025 10:54 AM CDT DTL Chloride, S 97(L) 98 - 107 mmol/L 03/12/2025 10:54 AM CDT DTL Bicarbonate, S 26 22 - 29 mmol/L 03/12/2025 10:54 AM CDT DTL Anion Gap 10 7 - 15 03/12/2025 10:54 AM CDT DTL BUN (Blood Urea Nitrogen), S 18 6 - 21 mg/dL 03/12/2025 10:54 AM CDT DTL Creatinine 1.71(H) 0.59 - 1.04 mg/dL 03/12/2025 10:54 AM CDT DTL Estimated GFR (eGFR) 34(L) >=60 mL/min/BS A 03/12/2025 10:54 AM CDT DTL Comment: Estimated GFR calculated using the 2020 CKD_EPI creatinine equation. Calcium, Total, S 8.9 8.8 - 10.2 mg/dL 03/12/2025 10:54 AM CDT DTL Glucose, S 91 70 - 140 mg/dL 03/12/2025 10:54 AM CDT DTL Protein, Total, S 6.0(L) 6.3 - 7.9 g/dL 03/12/2025 10:54 AM CDT DTL Albumin, S 4.0 3.5 - 5.0 g/dL 03/12/2025 10:54 AM CDT DTL Aspartate Aminotransferase (AST), S 24 8 - 43 U/L 03/12/2025 10:54 AM CDT DTL Alkaline Phosphatase, S 60 35 - 104 U/L 03/12/2025 10:54 AM CDT DTL Alanine Aminotransferase (ALT), S 12 7 - 45 U/L 03/12/2025 10:54 AM CDT DTL Bilirubin, Total, S 0.5 0.0 - 1.2 mg/dL 03/12/2025 10:54 AM CDT DTL Blood (Blood, Venous) 03/12/2025 9:42 AM CDT 03/12/2025 10:28 AM CDT Jeremías Mehta M.D., Ph.D. LAB BLOOD ADD-ON Final Result [facility] [address] [place] [address], [facility] [address] [place] [address] * (ABNORMAL) CBC with Differential, Blood (03/12/2025 9:42 AM CDT) Hemoglobin 12.4 11.6 - 15.0 g/dL 03/12/2025 10:54 AM CDT DTL Hematocrit 38.4 35.5 - 44.9 % 03/12/2025 10:54 AM CDT DTL Erythrocytes 4.28 3.92 - 5.13 x10(12)/L 03/12/2025 10:54 AM CDT DTL MCV 89.7 78.2 - 97.9 fL 03/12/2025 10:54 AM CDT DTL RBC Distrib Width 12.6 12.2 - 16.1 % 03/12/2025 10:54 AM CDT DTL Platelet Count 250 157 - 371 x10(9)/L 03/12/2025 10:54 AM CDT DTL Leukocytes 5.4 3.4 - 9.6 x10(9)/L 03/12/2025 10:54 AM CDT DTL Neutrophils 4.11 1.56 - 6.45 x10(9)/L 03/12/2025 10:54 AM CDT DH[facility] Lymphocytes 0.95 0.95 - 3.07 x10(9)/L 03/12/2025 10:54 AM CDT DTL Monocytes 0.25(L) 0.26 - 0.81 x10(9)/L 03/12/2025 10:54 AM CDT DTL Eosinophils 0.05 0.03 - 0.48 x10(9)/L 03/12/2025 10:54 AM CDT DTL Basophils 0.03 0.01 - 0.08 x10(9)/L 03/12/2025 10:54 AM CDT DTL Blood (Blood, Venous) 03/12/2025 9:42 AM CDT 03/12/2025 10:12 AM CDT Jreemías Mehta M.D., Ph.D. LAB BLOOD ADD-ON Final Result Performing Organization Address [facility] Co de Phone Number [facility] [address] [place] [address], [facility] DTL [facility] [address] [place] [address] DHPM [facility] [address] [place] [address] * (ABNORMAL) Cytoplasmic Neutrophil Antibodies (03/12/2025 9:41 AM CDT) Pathologist [facility] c-ANCA Negative Negative 03/14/2025 8:55 AM CDT [facility] Perinuclear (P-ANCA) Positive(A) Negative 8:55 AM CDT [facility] Comment: Equivocal for anti-MPO antibody by solid-phase immunoassay. pANCA pattern identified by immunofluorescence using ethanol-fixed neutrophils. Results consistent with testing performed on 08/30/2024. ----ADDITIONAL INFORMATION---- This test was developed and its performance characteristics determined by [facility] in a manner consistent with CLIA requirements. This test has not been cleared or approved by the U.S. Food and Drug Administration. Blood 03/12/2025 9:41 AM CDT 03/12/2025 1:28 PM CDT Jeremías Mehta M.D., Ph.D. LAB BLOOD ADD-ON Final Result Performing Organization Address City/[facility]/ZIP Co de Phone Number [facility] [address] [place] [address] [facility] [address] [place] [address] [place] [address] * (ABNORMAL) ANCA (Antineutrophil Cytoplasmic Antibodies) Vasculitis Panel (03/12/2025 9:41 AM CDT) Pathologist [facility] Myeloperoxidase Ab, S 0.9(H) <0.4 (Negative ) U 03/12/2025 1:21 PM CDT [facility] Comment:Interpretation: Equi vocal (0.4-0.9) Proteinase 3 Ab (PR3), S <0.2 <0.4 (Negative ) U 03/12/2025 1:21 PM CDT [facility] Blood (Blood, Venous) 03/12/2025 9:41 AM CDT 03/12/2025 12:26 PM CDT Result [facility] Jeremías Mehta M.D., Ph.D. LAB BLOOD ADD-ON Final Result Performing Organization Address City/[facility]/ZIP Co de Phone Number [facility] [address] [place] [address] [facility] [address] [place] [address] * Antinuclear Antibodies, HEp-2 Substrate, IgG, Serum (03/12/2025 9:41 AM CDT) Pathologist [facility] Antinuclear Ab, HEp-2 Substrate, S <1:80 (Negative ) <1:80 (Negativ e) 03/13/2025 2:41 PM CDT [facility] Comment: ----ADDITIONAL INFORMATION---- Method: Immunofluorescence using HEp-2 cellular substrate. Blood (Blood, Venous) 03/12/2025 9:41 AM CDT 03/12/2025 12:51 PM CDT us Jeremías Mehta M.D., Ph.D. LAB BLOOD ADD-ON Final Result Performing Organization Address City/[facility]/ZIP Co de Phone Number [facility] [address] [place] [address] [facility] [address] [place] [address] documented in this encounter Visit Diagnoses Diagnosis 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) documented in this encounter Care Teams [employer] Rep Relationship Specialty Start Date End Date Elsewhere, Pcp PCP - General Family Medicine 07/11/21 documented as of this encounter
--- OUTSIDE RECORDS SUMMARY | 2025-03-12 09:00 | XMS_ITS | Encounter Summary ---
Author Organization [facility] Address [address] [place] [address] Care Team Providers Care Supervisor [employer] Testing Name Role Phone Elsewhere, Pcp Primary Care Provider Unavailabl e Encounter Details Date Type Department Care Team (Latest Contact Info) Description 03/12/2025 9:00 AM CDT - 03/12/2025 9:09 AM CDT Hospital Encounter Department of Laboratory Medicine and Pathology, [facility] in [place], [place] [address] [place] [phone] Jeremías Mehta M.D., Ph.D. [address] [place] [phone] 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) Discharge Disposition: Home or Self Care Social History Tobacco Use Types Packs/Day Years Used Date Smoking Tobacco: Never Passive Smoke Exposure: Past Smokeless Tobacco: Never Alcohol Use Standard Drinks/Week Comments Never 0 (1 standard drink = 0.6 oz pur e alcohol) [facility] Utilities Answer Date Recorded In [...] week 09/23/2022 How often do you attend orthodox or amish serv ices? Never 09/23/2022 Do you belong to any clubs o r organizations such as orthodox groups, unions, fraternal or athletic groups, [...] and heating? Not hard at all 10/03/2023 [facility] - Occupational Stress Questionnaire Answer [...] your living situation today? I have a [facility] place to live 02/18/2025 Education Answer Date Recorded What is the highest level of school you have completed or the highest degree you have received? 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 300 capsule 3 09/01/2024 omega 2-quk-bnx-fish oil 1,200 (144-216) mg capsule 01/31/2020 progesterone (Prometrium) 100 mg capsule Take 1 capsule (100 mg total) by mouth daily. 90 capsule 3 02/23/2025 documented as of this encounter Plan of Treatment Upcoming Encounters Date Type Department Care Team (Late st Contact Info) Description 04/16/2025 2:00 PM CDT Telemedicine Division of Nephrology and Hypertension in [place], [place] [address] [place] [phone] Jeremías Mehta M.D., Ph.D. [address] [place] [phone] documented as of this encounter Procedures Procedure [...] LAB BLOOD ADD-ON Fin al Result [facility] 200 [place] [address], [facility] 200 [place] [address] * CRP (C-Reactive Protein) (03/12/2025 9:42 AM CDT) Pathologist [facility] C-Reactive Protein (CRP), S <3.0 <5.0 mg/L 03/12/2025 10:54 AM CDT DTL Blood (Blood, Venous) 03/12/2025 9:42 AM CDT 03/12/2025 10:28 AM CDT Irma VazquezB.B.S. LAB BLOOD ADD-ON Fin al Result [facility] 200 [place] [address], [facility] DTL [facility] [address] [place] [address] * (ABNORMAL) Mycophenolic Acid (03/12/2025 9:42 AM [...] developed and its performance characteristics determined by [facility] in a manner consistent with CLIA requirements. This test has not been cleared or approved by the U.S. Food and Drug Administration. Blood (Blood, Venous) 03/12/2025 9:42 AM CDT 03/12/2025 12:48 PM CDT us Jeremías Mehta M.D., Ph.D. LAB BLOOD NON AD D-ON Final Result [facility] [address] [place] [address] [facility] [address] [place] [address] [place] [address] * Uric Acid (03/12/2025 9:42 AM CDT) Uric Acid, S 4.8 2.7 - 6.1 mg/dL 03/12/2025 10:54 AM CDT DTL Blood (Blood, Venous) 03/12/2025 9:42 AM CDT 03/12/2025 10:28 AM CDT us Jeremías Mehta M.D., Ph.D. LAB BLOOD ADD-ON Final Result [facility] [address] [place] [address], [facility] DTL [facility] [address] [place] [address] * (ABNORMAL) Comprehensive Metabolic Panel (03/12/2025 9:42 [...] Ph.D. LAB BLOOD ADD-ON Final Result [facility] [address] [place] [address], [facility] [address] [place] [address] * (ABNORMAL) CBC with Differential, Blood (03/12/2025 [...] 9:42 AM CDT 03/12/2025 10:12 AM CDT Jeremías Mehta M.D., Ph.D. LAB BLOOD ADD-ON Final Result Performing Organization Address [facility] Co de Phone Number [facility] [address] [place] [address], [facility] DTL [facility] [address] [place] [address] DHPM [facility] [address] [place] [address] * (ABNORMAL) Cytoplasmic Neutrophil Antibodies (03/12/2025 9:41 AM CDT) Pathologist [facility] c-ANCA Negative Negative 03/14/2025 8:55 AM CDT [facility] Perinuclear (P-ANCA) Positive(A) Negative 8:55 AM CDT [facility] Comment: Equivocal for anti-MPO antibody by solid-phase immunoassay. pANCA pattern identified by immunofluorescence using ethanol-fixed neutrophils. Results consistent with testing performed on 08/30/2024. ----ADDITIONAL INFORMATION---- This test was developed and its performance characteristics determined by [facility] in a manner consistent with CLIA requirements. This test has not been cleared or approved by the U.S. Food and Drug Administration. Blood 03/12/2025 9:41 AM CDT 03/12/2025 1:28 PM CDT Jeremías Mehta M.D., Ph.D. LAB BLOOD ADD-ON Final Result Performing Organization Address City/[facility]/ZIP Co de Phone Number [facility] [address] [place] [address] [facility] [address] [place] [address] [place] [address] * (ABNORMAL) ANCA (Antineutrophil Cytoplasmic Antibodies) Vasculitis Panel (03/12/2025 9:41 AM CDT) Pathologist [facility] Myeloperoxidase Ab, S 0.9(H) <0.4 (Negative ) U 03/12/2025 1:21 PM CDT [facility] Comment:Interpretation: Equi vocal (0.4-0.9) Proteinase 3 Ab (PR3), S <0.2 <0.4 (Negative ) U 03/12/2025 1:21 PM CDT [facility] Blood (Blood, Venous) 03/12/2025 9:41 AM CDT 03/12/2025 12:26 PM CDT Result [facility] Jeremías Mehta M.D., Ph.D. LAB BLOOD ADD-ON Final Result Performing Organization Address City/[facility]/ZIP Co de Phone Number [facility] [address] [place] [address] [facility][note 2] [address] [place] [address] * Antinuclear Antibodies, HEp-2 Substrate, IgG, Serum (03/12/2025 9:41 AM CDT) Pathologist [facility] Antinuclear Ab, HEp-2 Substrate, S <1:80 (Negative ) <1:80 (Negativ e) 03/13/2025 2:41 PM CDT [facility] Comment: ----ADDITIONAL INFORMATION---- Method: Immunofluorescence using HEp-2 cellular substrate. Blood (Blood, Venous) 03/12/2025 9:41 AM CDT 03/12/2025 12:51 PM CDT us Jeremías Mehta M.D., Ph.D. LAB BLOOD ADD-ON Final Result Performing Organization Address City/[facility]/ZIP Co de Phone Number [facility] [address] [place] [address] [facility][note 2] [address] [place] [address] documented in this encounter Visit Diagnoses Diagnosis 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) documented in this encounter Care Teams Supervisor Electronics Testing Relationship Specialty Start Date End Date Elsewhere, Pcp PCP - General Family Medicine 07/11/21 documented as of this encounter
--- OUTSIDE RECORDS SUMMARY | 2025-03-12 09:10 | XMS_ITS | Encounter Summary ---
Author Organization [facility] Address [address] [place] [address] Care Team Providers Care Settlement Processor Name Role Phone Elsewhere, Pcp Primary Care Provider Unavailabl e Encounter Details Date Type Department Care Team (Latest Contact Info) Description 03/12/2025 9:10 AM CDT - 03/12/2025 11:59 PM CDT Hospital Encounter Department of Laboratory Medicine and Pathology, [facility] in [place], [place] [address] [place] [phone] Jeremías Mehta M.D., Ph.D. [address] [place] [phone] 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) Discharge Disposition: Home or Self Care Social History Tobacco Use Types Packs/Day Years Used Date Smoking Tobacco: Never Passive Smoke Exposure: Past Smokeless Tobacco: Never Alcohol Use Standard Drinks/Week Comments Never 0 (1 standard drink = 0.6 oz pur e alcohol) [facility] Utilities Answer Date Recorded In the past [...] week 09/23/2022 How often do you attend islam or mormonism serv ices? Never 09/23/2022 Do you belong to any clubs o r organizations such as islam groups, unions, fraternal or athletic groups, or [...] and heating? Not hard at all 10/03/2023 [facility] - Occupational Stress Questionnaire Answer Date [...] your living situation today? I have a [facility] place to live 02/18/2025 Education Answer Date Recorded What is the highest level of school you have completed or the highest degree you have received? 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 300 capsule 3 09/01/2024 omega 9-hoy-elg-fish oil 1,200 (144-216) mg capsule 01/31/2020 progesterone (Prometrium) 100 mg capsule Take 1 capsule (100 mg total) by mouth daily. 90 capsule 3 02/23/2025 documented as of this encounter Plan of Treatment Upcoming Encounters Date Type Department Care Team (Late st Contact Info) Description 04/16/2025 2:00 PM CDT Telemedicine Division of Nephrology and Hypertension in [place], [place] [address] [place] [phone] Jeremías Mehta M.D., Ph.D. [address] [place] [address] documented as of this encounter Procedures Procedure Name Priority Date/Time Associated Diagnosis Comments DIPSTICK, U Routine 03/12/2025 11:04 AM CDT MICROSCOPIC AUTOMATED Routine 03/12/2025 11:04 AM CDT PH, U Routine 03/12/2025 11:04 AM CDT OSMOLALITY, U Routine 03/12/2025 11:04 AM CDT URINALYSIS WITH MICROSCOPIC Routine 03/12/2025 11:04 AM CDT 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) documented in this encounter Results * Dipstick, Urine (03/12/2025 11:04 AM CDT) Hemoglobin, QL, U Negative Negative 03/12/2025 12:42 PM CDT DTL Leukocyte Esterase, U Negative Negative 03/12/2025 12:42 PM CDT DTL Nitrite, U Negative Negative 03/12/2025 12:42 PM CDT DTL Ketone, U Negative Negative mg/dL 03/12/2025 12:42 PM CDT DTL Glucose, U Negative Negative mg/dL 03/12/2025 12:42 PM CDT DTL Urine 03/12/2025 11:0 4 AM CDT 03/12/2025 12:03 PM CDT Jeremías Mehta M.D., Ph.D. LAB URINE ORDERA BLES Final Result Performing Organization Address City/[facility]/ZIP Co de Phone Number [facility] [address] 200 [place] [address] * (ABNORMAL) Osmolality, Urine (03/12/2025 11:04 AM CDT) Osmolality, U 138(L) 150 - 1150 mOsm/kg 03/12/2025 12:45 PM CDT DTL Urine 03/12/2025 11:0 4 AM CDT 03/12/2025 12:03 PM CDT Result [facility] Jeremías Mehta M.D., Ph.D. LAB URINE ORDERA BLES Final Result Performing Organization Address City/[facility]/ZIP Co de Phone Number [facility] [address] 200 [place] [address] * pH, Urine (03/12/2025 11:04 AM CDT) pH, U 6.9 4.5 - 8.0 03/12/2025 12: 45 PM CDT DT Urine 03/12/2025 11:0 4 AM CDT 03/12/2025 12:03 PM CDT Jeremías Mehta M.D., Ph.D. LAB URINE ORDERA BLES Final Result Performing Organization Address [facility] Co de Phone Number [phone] [place] [address] [place] [address] * Microscopic Automated (03/12/2025 11:04 AM CDT) Microscopy Normal 03/12/2025 12:42 PM CDT DTL RBC None Seen <3 /hpf 03/12/2025 12:42 PM CDT DTL WBC None Seen /hpf 03/12/2025 12:42 PM CDT DTL Comment: ----REFERENCE VALUE---- <4 (Males) <11 (Females) Squamous Epithelial Cells, U 1-3 /hpf 03/12/2025 12:42 PM CDT DTL Urine 03/12/2025 11:0 4 AM CDT 03/12/2025 12:03 PM CDT Jeremías Mehta M.D., Ph.D. LAB URINE ORDERA BLES Final Result Performing Organization Address [facility] Co de Phone Number [phone] [place] [phone] * (ABNORMAL) Urinalysis, with Microscopic: Urine, Voided (03/12/2025 11:04 AM CDT) Source Urine, Urine, Voided 03/12/2025 12:03 PM CDT DTL Color, U Yellow 03/12/2025 12:03 PM CDT DTL Clarity, U Clear 03/12/2025 12:03 PM CDT DTL Protein, U 15 <26 mg/dL 03/12/2025 1:09 PM CDT DTL Protein/Osmola lity 1.09(H) <0.42 ratio 03/12/2025 1:09 PM CDT DTL Predicted 24 HR Protein, U 722(H) <229 mg/24 h 03/12/2025 1:09 PM CDT DTL Predicted Range 178-2921 mg/24 h 03/12/2025 1:09 PM CDT DTL Urine (Urine, Voided) 03/12/2025 11:04 AM CDT 03/12/2025 12:03 PM CDT Jeremías Mehta M.D., Ph.D. LAB URINE ORDERA BLES Final Result [facility] [address] [place] [address], [facility] DTL [facility] [address] [place] [address] documented in this encounter Visit Diagnoses Diagnosis 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) documented in this encounter Care Teams Settlement Processor Relationship Specialty Start Date End Date Elsewhere, Pcp PCP - General Family Medicine 07/11/21 documented as of this encounter
--- OUTSIDE RECORDS SUMMARY | 2025-03-12 09:10 | XMS_ITS | Encounter Summary ---
Author Organization [facility] Address [address] [place] [address] Care Team Providers Care Particleboard Factory Worker Name Role Phone Elsewhere, Pcp Primary Care Provider Unavailabl e Encounter Details Date Type Department Care Team (Latest Contact Info) Description 03/12/2025 9:10 AM CDT - 03/12/2025 11:59 PM CDT Hospital Encounter Department of Laboratory Medicine and Pathology, [facility] in [place], [place] [address] [phone] Jeremías Mehta M.D., Ph.D. [address] [place] [phone] 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) Discharge Disposition: Home or Self Care Social History Tobacco Use Types Packs/Day Years Used Date Smoking Tobacco: Never Passive Smoke Exposure: Past Smokeless Tobacco: Never Alcohol Use Standard Drinks/Week Comments Never 0 (1 standard drink = 0.6 oz pur e alcohol) [facility] Utilities Answer Date Recorded In the [...] week 09/23/2022 How often do you attend gnosticism or congregational serv ices? Never 09/23/2022 Do you belong to any clubs o r organizations such as gnosticism groups, unions, fraternal or athletic groups, or [...] heating? Not hard at all 10/03/2023 [facility] - Occupational Stress Questionnaire Answer Date [...] your living situation today? I have a [facility] place to live 02/18/2025 Education Answer Date Recorded What is the highest level of school you have completed or the highest degree you have received? 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 300 capsule 3 09/01/2024 omega 4-fno-jyd-fish oil 1,200 (144-216) mg capsule 01/31/2020 progesterone (Prometrium) 100 mg capsule Take 1 capsule (100 mg total) by mouth daily. 90 capsule 3 02/23/2025 documented as of this encounter Plan of Treatment Upcoming Encounters Date Type Department Care Team (Late st Contact Info) Description 04/16/2025 2:00 PM CDT Telemedicine Division of Nephrology and Hypertension in [place], [place] [address] [phone] Jeremías Mehta M.D., Ph.D. [address] [place] [address] documented as of this encounter Procedures Procedure [...] ORDERA BLES Final Result Performing Organization Address City/[facility]/ZIP Co de Phone Number [facility] [place] [address] 200 [place] [address] * (ABNORMAL) Osmolality, Urine (03/12/2025 11:04 AM CDT) Osmolality, U 138(L) 150 - 1150 mOsm/kg 03/12/2025 12:45 PM CDT DTL Urine 03/12/2025 11:0 4 AM CDT 03/12/2025 12:03 PM CDT Result [facility] Jeremías Mehta M.D., Ph.D. LAB URINE ORDERA BLES Final Result Performing Organization Address City/[facility]/ZIP Co de Phone Number [facility] [place] [address] 200 [place] [address] * pH, Urine (03/12/2025 11:04 AM CDT) pH, U 6.9 4.5 - 8.0 03/12/2025 12: 45 PM CDT DT Urine 03/12/2025 11:0 4 AM CDT 03/12/2025 12:03 PM CDT Jeremías Mehta M.D., Ph.D. LAB URINE ORDERA BLES Final Result Performing Organization Address [facility] Co de Phone Number [phone] [place] [address] [place] [address] * Microscopic Automated (03/12/2025 11:04 AM CDT) [...] ORDERA BLES Final Result Performing Organization Address [facility] Co de Phone Number [phone] [place] [phone] * (ABNORMAL) Urinalysis, with Microscopic: Urine, Voided [...] Ph.D. LAB URINE ORDERA BLES Final Result [facility] [place] [address] [place] [address], [facility] DTL [facility] [address] [place] [address] documented in this encounter Visit Diagnoses Diagnosis 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) documented in this encounter Care Teams Particleboard Factory Worker Relationship Specialty Start Date End Date Elsewhere, Pcp PCP - General Family Medicine 07/11/21 documented as of this encounter
--- OUTSIDE RECORDS SUMMARY | 2025-03-25 22:39 | XMS_ITS | Clinical Summary ---
Author Organization [facility] [facility] Address [address] [place] [address] Care Team Providers Care Strip Picker Name Role Phone Summer Mendoza DO Primary Care Provider [phone] Allergies Active Allergy Reactions Criticality Noted Date Comments Unlisted Allergen (Include Detail In Comments) Runny Nose 06/24/2023 Seasonal allergies-runny nose, sneezing Medications loratadine (CLARITIN) 10 mg tablet Take 1 tablet by mouth once daily. 0 10/09/20 14 Active estradiol 0.025 mg/24 hr (VIVELLE-DOT) 0.025 mg/[address] ONE PATCH ON THE SKIN TWICE A WEEK 23 02/14/20 19 Active progesterone micronized (PROMETRIUM) 100 mg capsule TAKE 1 CAPSULE (100 MG TOTAL) BY MOUTH DAILY. 3 11/26/19 19 Active mycophenolate (CellCept) 250 mg capsuleIndications :ANCA-positive vasculitis (HC) Patient reports taking 500 mg in the AM and 250 mg in the PM. 0 08/23/20 23 Active medication order composerIndication s:Anxiety Calcium carbonate (small amount of vitamin D3) - believes 600 mg Pure Encapsulations ONE multivitamin - 1 capsule daily Omegas (brand unknown) - 1200 mg daily 0 08/23/20 23 Active montelukast (SINGULAIR) 10 mg tabletIndications: Seasonal allergies Take 1 Tablet (10 mg) by mouth at bedtime. 90 Tablet 3 03/10/20 24 Active metroNIDAZOLE (METROCREAM) 0.75 % cream Apply topically to affected area(s) two times daily. 03/29/20 24 Active levothyroxine (SYNTHROID) 50 mcg tabletIndications: Acquired hypothyroidism Take 1 Tablet (50 mcg) by mouth before breakfast. 90 Tablet 3 07/19/20 24 Active gabapentin (NEURONTIN) 100 mg capsuleIndications :Chronic bilateral thoracic back pain Take 1 Capsule (100 mg) by mouth 3 times daily if needed (back spasm). 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 [address] [place] [address] Blood Pressure (125/72) 02/16/2025 Travel 02/07/[address] [facility] [address] [place] [address] Summer Mendoza DO Refill Request (Candesartan) from Last 3 Months Immunizations Immunization Administration Dates Next Due AMB Influenza, IIV3 (Age >=3 years)(Flu Clinic Only) 09/02/2012 COVID-19 vaccine (NaroomiBio NTWaicai 30mcg/0.3mL) 12YO+ BIVALENT PF, MDV 07/17/2022 Hepatitis A (Adult) 03/20/2010,09/05/2009 Hepatitis A, Unspecified 03/20/2010,09/05/2009 Influenza A (H1N1), Inactivated 09/11/2009 Influenza Virus, Unspecified 09/05/2012 Influenza, High-dose Inactivated 08/29/2013 Influenza, IIV3 (Age 6-35 mos) 07/28/2011 Influenza, IIV3 (Age >=3 years) 08/11/20 13,09/02/2012,07/28/2011,2009,09/01/2008,09/06/2006,08/19/2004 Influenza, IIV4 09/09/2022,,07/19/2019,2016,08/14/2016,09/10/2015,09/10/2014 Influenza, IIV4 (=>6mos) MDV 07/26/2020,07/28/20 18,07/22/2016 Influenza, Injectable, Mdck, Quadrivalent, W/preservative 08/15/2021 Influenza,CCIIV4 PRESERV FREE 2023 Pneumococcal Poly,23-Valent (Pneumovax) 09/10/2014,09/15/2004 Pneumococcal conj 13-Valent (Prevnar 13) 06/25/2014 TD, UNSPECIFIED 11/14/2003 Td (Age >=7 Years) 11/13/2003 Tdap 07/18/2024,08/11/2013,11/14/2003 Family History Medical History Relation Name Comments Good Health Father Allen Heart failure Maternal Grandfather Kevin Hypertension Mother Bhumi Sibley Relation Name Status Comments Father Allen Maternal Grandfather Kevin Mother Bhumi Sibley Social History Tobacco Use Types Packs/Day Years Used Date Smoking Tobacco: Never Smokeless Tobacco: Never Tobacco Cessation:Counseling Given: No Alcohol Use Standard Drinks/Week Comments No 0 (1 standard drink = 0.6 oz pur e alcohol) PHQ-2 Answer Date Recorded PHQ-2 TOTAL SCORE 0 03/10/2024 Social Connections Answer Date Recorded Do you often feel lonely or isolated from those around you? 0 10/16/2024 Financial Resource Strain Answer Date R ecorded Difficulty of Paying Living Expenses 3 10/16/2024 Difficulty of Paying Living Expenses Not on file 10/16/2024 Food Insecurity Answer Date Recorded Do you worry your food will run out before you are able to buy more? 1 10/16/2024 Transportation Needs Answer Date Record ed Does lack of transportation keep you from medica l appointments? 1 10/16/2024 Does lack of transportation keep you from work, meetings or getting things that you need? 1 10/16/2024 Housing Stability Answer Date Recorded What is your housing situation today? 1 10/16/2024 Utilities Answer Date Recorded Do you have trouble paying f or utilities (for example, heat, electricity, water, phone)? 1 10/16/2024 Comments No Sex and Gender Information Value Date Recorded Sex Assigned at Not on file Legal Sex Female 6:19 AM PROJECT ADMINISTRATOR Gender Identity Not on file Sexual Orientation Not on file Obstetrics History Last Filed Vital Signs Vital Sign Reading Time Taken Comments Blood Pressure 125/72 02/16/2025 9:49 AM CDT Pulse 79 02/16/2025 9:49 AM CDT Temperature 36.6 C (97.9 F) 06/06/2021 2:14 PM CDT Respiratory Rate 14 04/15/2017 5:30 PM CDT Oxygen Saturation 100% 10/16/2024 11:28 AM PROJECT ADMINISTRATOR Inhaled Oxygen Concentration - - Weight 55.5 kg (122 lb 6.4 oz) 10/16/2024 11:28 AM PROJECT ADMINISTRATOR Height 156.5 cm (5' 1.61) 10/16/2024 11:[address] Body Mass Index 22.67 10/16/2024 11:28 AM PROJECT ADMINISTRATOR Plan of Treatment Health Maintenance Due Date Last Done Comments HIV for age 15-65 1979 Zoster (shingles) series for age 50+ (1 of 2) 1983 Mammogram for age 45-75 08/22/2022 08/22/20 21 (Completed outside of [facility]), 08/09/2020 (Completed outside of [facility]), 06/23/2019 (Completed outside of [facility]), Additional history exists RSV vaccine for adults or (1 - Risk 60-74 years 1-dose series) 2024 Pap test for age 21-65 08/22/2024 (Completed outside of [facility]), 06/20/2018 (Completed outside of [facility]), 06/01/2017 (Completed outside of [facility]), Additional history exists Depression screening for age 12+ 03/10/2025 03/10/2024, 09/09/2022, 12/16/2021, Additional history exists COVID-19 vaccine series (7 - Pfizer risk season) 2025 11/03/2024, 09/16/2023, 07/17/2022, Additional history exists Influenza Vaccine (Season Ended) 2025 2023, 09/09/2022, 08/15/2021, Additional history exists Colonoscopy through age 75 08/02/2025 08/02/2015 BMI (ht and wt on same day) for age 18+ 10/16/2025 10/16/2024, 07/18/2024, 09/09/2022, Additional history exists Lipids for age 45-75 07/18/2029 07/18/2024, 10/07/2018, 06/20/2015, Additional history exists Tetanus booster 07/18/2034 07/18/2024, 08/01, 11/14/2003, Additional history exists Pneumococcal series for age 50+ Completed 09/10/2014, 06/25/2014, 09/15/2004 Hepatitis C screening for age 18-79 Completed 07/19/2019 Tdap Completed 07/18/2024, 08/01, 11/14/2003 Hepatitis B series for 19+ Aged Out N o longer eligible based on patient's age to complete this topic Procedures Procedure Name Priority Date/Time Associated Diagnosis Comments LIPID PANEL W REFLEX MEASURED LDL Routine 07/18/2024 1:58 PM CDT Screening for lipid disorders ANTI HCV Routine 07/19/2019 4:48 PM CDT Need for hepatitis C screening test from Last 3 Months or Most Recently Relevant to Health Maintenance Results * (ABNORMAL) LIPID PANEL W REFLEX MEASURED LDL [[id number]] (07/18/2024 1:58 PM CDT) CHOLESTEROL, TOTAL 213(H) <200 mg/dL [facility] HDL CHOLESTEROL 76 > OR = 50 mg/dL [facility] TRIGLYCERIDES 82 <150 mg/dL [facility] LDL-CHOLESTEROL 119(H) mg/dL (calc) [facility] Comment: Reference range: <100 Desirable range <100 mg/dL for primary prevention; <70 mg/dL for patients with CHD or diabetic patients with > or = 2 CHD risk factors. LDL-C is now calculated using the Hernandez-Johnson calculation, which is a validated novel method providing better accuracy than the Friedewald equation in the estimation of LDL-C. Hernandez SS et al. ALBERT. 2013;310(19): 0702-3226 (http://education.e-[employer].Audiam/faq/RZV416) CHOL/HDLC RATIO 2.8 <5.0 (calc) [facility] NON HDL CHOLESTEROL 137(H) <130 mg/dL (calc) [facility] Comment: For patients with diabetes plus 1 major ASCVD risk factor, treating to a non-HDL-C goal of <100 mg/dL (LDL-C of <70 mg/dL) is considered a therapeutic option. Blood BLOOD SPECIMEN / Unknown 07/18/2024 1:58 PM CDT 07/18/2024 1:59 PM CDT us Summer Mendoza DO CHEMISTRY Final Result [employer] [facility] [address] [place] [address], [facility] [address] [place] [address] * ANTI HCV (07/19/2019 4:48 PM CDT) HEPATITIS C ANTIBODY Non-React johanna Non-React johanna 07/20/2019 2:[address] [facility] Comment:Antibodies to HCV no t detected; does not exclude the possibility of exposure to HCV. Blood BLOOD SPECIMEN / Unknown Venipuncture / Unknown 07/19/2019 4:48 PM CDT 07/19/2019 4:51 PM CDT us Marjan THOMPSON SEND OUTS Final Resu lt [facility] [address] [place] [address], [place] from Last 3 Months or Most Recently Relevant to Health Maintenance Insurance [facility] Care Teams Strip Picker Relationship Specialty Start Date End Date Summer Mendoza DO [address] [place] [address] PCP - General Family Practice 06/11/23
--- OUTSIDE RECORDS SUMMARY | 2025-03-25 22:39 | XMS_ITS | Clinical Summary ---
Author Organization [facility] Address [address] [place] [address] Care Team Providers Care Manuscript Reader Name Role Phone Elsewhere, Pcp Primary Care Provider Unavailabl e Source Comments Patient records contain information from all sites at [facility]. For routine questions regarding patient records, call [phone] during business hours, M-F 8:00 AM - 5:00 PM Central Time. Record requests for emergency care only can be directed to [phone] at any time.[facility] Allergies No known active allergies Medications * This document contains information received from the source organization and may not represent a complete record from that organization. CALCIUM CARBONATE/VITAMIN D3 (CALCIUM 600 + D,3, ORAL) Take 1 tablet by mouth daily. 02/18/20 11 Active loratadine (CLARITIN) 10 mg tablet Take 1 tablet by mouth as needed. As needed 03/19/20 14 Active multivitamin tablet Take 1 tablet by mouth daily. 03/20/20 16 Active omega 7-grb-bft-fish oil 1,200 (144-216) mg capsule 01/31/20 20 Active levothyroxine sodium (TIROSINT) 50 mcg capsule 1 tablet daily 12/12/19 23 Active candesartan (ATACAND) 4 mg tablet Take 2 mg by mouth daily. Active metroNIDAZOLE (MetroCream) 0.75 % cream Apply 1 Application topically as needed. 03/29/20 24 Active mycophenolate (CellCept) 250 mg capsuleIndications :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),Vasculitis Take 1 capsule (250 mg total) by mouth 2 (two) times a day. Do not break, cut, or open capsules. 300 capsule 3 09/01/20 24 Active estradioL (Vivelle-Dot) 0.025 mg/[address] 1 patch on the skin 2 (two) times a week. 32 patch 3 02/27/20 25 Active progesterone (Prometrium) 100 mg capsule Take 1 capsule (100 mg total) by mouth daily. 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 [facility] Adult Discharge Disposition: Home or Self Care 02/23/2025 9:15 AM CDT Office Visit Department of Obstetrics and Gynecology in [place], [place] [address] [place] [address] Soraya Garcia APRN, C.N.P., D.N.P. Counseling Hormone Replacement Therapy (Primary Dx); Atrophy Vagina Due To Estrogen Deficiency 02/20/2025 8:45 AM CDT Clinical Communication Virtual Review in [place], [place] [address] [place] [phone] Pre-visit Intake from Last 3 Months Immunizations Immunization Administration Dates Next Due HepA, Unspecified 03/20/2010,09/05/2009 Influenza Split 08/29/2013,09/05/2012 PCV13 06/25/2014 PPSV23 09/10/2014,09/15/2004 SARS-COV-2 (COVID-19) - PFIZ ER (Discontinued)(12 years or older) 07/11/2021 Td, (Adult) Unspecified 11/14/2003 Tdap 08/11/2013,11/14/2003 influenza vaccine quad (FLUZ ONE/FLUARIX) (6 months and older)(PF) 09/10/2014 Family History Medical History Relation Name Comments Coronary artery disease Maternal Grandfather 1 Kevin El wood Coronary artery disease Maternal Grandfather 2 Kevin [place] Hyperlipidemia Maternal Grandmother 1 Pamela Gueydan Hyperlipidemia Maternal Grandmother 2 Pamela Kal Hypertension Mother 1 Bhumi Mike Hypertension Mother 2 Bhumi Mike Dementia Paternal Grandmother 1 Teri Mike Dementia Paternal Grandmother 2 Teri Mike Relation Name Status Comments Maternal Grandfather 1 Kevin Gueydan Maternal Grandfather 2 Kevin Gueydan Alive Maternal Grandmother 1 Pamela Gueydan Maternal Grandmother 2 Pamela Kal Alive Mother 1 Bhumi Mike Mother 2 Bhumi Mike Alive Paternal Grandmother 1 Teri Mike Paternal Grandmother 2 Teri Mike Alive Social History Tobacco Use Types Packs/Day Years Used Date Smoking Tobacco: Never Passive Smoke Exposure: Past Smokeless Tobacco: Never Alcohol Use Standard Drinks/Week Comments Never 0 (1 standard drink = 0.6 oz pur e alcohol) [facility] Utilities Answer Date Recorded In the past 12 months has [facility] [place], oil, or [employer] threatened to shut off services in your [...] week 09/23/2022 How often do you attend episcopalian or rastafarian serv ices? Never 09/23/2022 Do you belong to any clubs o r organizations such as episcopalian groups, unions, fraternal or athletic groups, or [...] and heating? Not hard at all 10/03/2023 [facility] [place] of Occupat ional Health - Occupational Stress [...] living situation today? I have a [facility] place to live 02/18/2025 Education Answer Date Recorded What is the highest level of school you have completed or the highest degree you have received? Associate degree: occupational, technical, or vocational program 05/12/2020 Comments No Sex and Gender Information Value Date Recorded Sex Assigned at Female 04/24/2018 12:53 PM CDT Legal Sex Female 6:11 AM [employer] Gender Identity Female 04/24/2018 12:53 PM CDT Sexual Orientation Straight 04/24/2018 12 :53 PM CDT Last Filed Vital Signs Vital Sign Reading Time Taken Comments Blood Pressure 143/77 09/01/2024 9:21 AM CDT Pulse 72 09/01/2024 9:21 AM CDT Temperature 35.4 C (95.7 F) 09/01/2024 9:21 AM CDT Respiratory Rate - - Oxygen Saturation - - Inhaled Oxygen Concentration - - Weight 54.6 kg (120 lb 7.7 oz) 09/01/2024 9:21 AM CDT Height 157.1 cm (5' 1.85) 09/01/2024 9:21 AM CD T Body Mass Index 22.14 09/01/2024 9:21 AM CDT Plan of Treatment Upcoming Encounters Date Type Department Care Team (Late st Contact Info) Description 04/16/2025 2:00 PM CDT Telemedicine Division of Nephrology and Hypertension in [place], [place] [address] [place] [phone] Jeremías Mehta M.D., Ph.D. [address] [place] [phone] Health Maintenance Due Date Last Done Comments CT Colonography 1964 Cologuard 1964 FIT 1965 HIV Screening 1964 Zoster Vaccines (1 of 2) 1983 Pneumococcal vaccine (50+ years) (4 of 4 - PCV20 or PCV21) 09/10/2019 09/10/2014, 06/25/2014, 09/15/2004 RSV vaccine - (32-36 weeks) or 60+ years (1 - Risk 60-74 years 1-dose series) 2024 Depression Screening (Annual PHQ-2) 11/01/2024 Office Visit for Blood Pressure Check / Re-check 12/02/2024 09/01/2024 COVID-19 Vaccine (7 - Pfizer risk 2023- season) 2025 11/03/2024, 09/16/2023, 07/17/2022, Additional history exists Colonoscopy 08/01/2025 08/01/2015 (Perf ormed elsewhere) Colorectal Cancer Screening 08/01/2025 Thyroid Stimulating Hormone (TSH) test for thyroid function 08/30/2025 08/30/2024, 06/09/2023, 09/09/2022, Additional history exists Mammogram 02/23/2026 02/23/2025, 12/0 06/2023, 09/25/2022, Additional history exists Creatinine Level (Kidney Function Test) 03/12/2026 03/12/2025, 03/12/2025, 08/30/2024, Additional history exists Potassium Level 03/12/2026 03/12/2025, 08/03, 03/10/2024, Additional history exists Sodium Level 03/12/2026 03/12/2025, 08/03, 03/10/2024, Additional history exists Cervical/Vaginal Cancer Screening 08/22/2026 08/22/2021, 08/22/2021, 06/20/2018, Additional history exists Fasting Glucose for Diabetes Screening 03/12/2028 03/12/2025, 08/30/2024, 08/30/2024, Additional history exists Lipid (Cholesterol) Screening 08/30/2029 08/30/2024, 09/06/2023, 01/04/2023, Additional history exists DTaP,Tdap,and Td Vaccines (5 - Td or Tdap) 07/18/2034 07/18/2024, 08/11/2013, 11/14/2003, Additional history exists Hepatitis C Screening Completed 08/07/2004 Hepatitis A Vaccines Completed 03/20/2010, 09/05/20 Influenza Vaccine Completed 08/25/2024, , 09/09/2022, Additional history exists HPV Vaccines Aged Out No longer eligi ble based on patient's age to complete this topic Hepatitis B Vaccines Aged Out No long er eligible based on patient's age to complete this topic IPV Vaccines Aged Out No longer eligi ble based on patient's age to complete this topic Medical Devices Implanted Type Area Customer Care Representative Device Identifier Shelf Expiration Date Model / Serial / Lot Breast Other Breast Other Breast Description:Patient has a east biopsy clip Procedures Procedure Name Priority Date/Time Associated Diagnosis Comments DIPSTICK, U Routine 03/12/2025 11:04 AM CDT OSMOLALITY, U Routine 03/12/2025 11:04 AM CDT PH, U Routine 03/12/2025 11:04 AM CDT MICROSCOPIC AUTOMATED Routine 03/12/2025 11:04 AM CDT URINALYSIS WITH MICROSCOPIC Routine 03/12/2025 11:04 AM CDT 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) SEDIMENTATION RATE, B Routine 03/12/2025 9:42 AM CDT 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) C-REACTIVE PROTEIN (CRP), S/P Routine 03/12/2025 9:42 AM CDT 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) MYCOPHENOLIC ACID, S Routine 03/12/2025 9:42 AM [...] ABS, S Routine 03/12/2025 9:41 AM CDT ANCA VASCULITIS PANEL, S Routine 03/12/2025 9:41 AM CDT 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) ANTINUCLEAR AB, HEP-2, SUBSTRATE, S Routine 03/12/2025 9:41 AM CDT 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) PROTEIN, TOTAL, 24 HR, U Routine 03/12/2025 9:10 AM CDT 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) CREATININE CLEARANCE, S AND 24H U Routine 03/12/2025 9:10 AM CDT 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) BI BREAST SCREENING BILATERAL WITH TOMOSYNTHESIS RAD - Routine (most inpatients and all outpatients) 02/23/2025 10:36 AM CDT Maintenance Health Adult LIPID PANEL, S Routine 08/30/2024 9:48 AM CDT 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) THYROID-STIMULATING HORMONE-SENSITIVE (S-TSH) Routine 08/30/2024 9:48 AM CDT 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) HPV WITH GENOTYPING, PCR, THINPREP Routine 08/22/2021 9:36 AM CDT from Last 3 Months or Most Recently Relevant to Health Maintenance Results * Dipstick, Urine (03/12/2025 11:04 AM [...] Ph.D. LAB URINE ORDERA BLES Final Result [facility] [address] [place] [address], [facility] [address] [place] [address] * Microscopic Automated (03/12/2025 11:04 AM CDT) [...] Ph.D. LAB URINE ORDERA BLES Final Result [facility] [place] [address] 200 [place] [address] * pH, Urine (03/12/2025 11:04 AM CDT) pH, U 6.9 4.5 - 8.0 03/12/2025 12: 45 PM CDT DTL Urine 03/12/2025 11:0 4 AM CDT 03/12/2025 12:03 PM CDT Result [facility] Jeremías Mehta M.D., Ph.D. LAB URINE ORDERA BLES Final Result [facility] [place] [address] 200 [place] [address] * (ABNORMAL) Osmolality, Urine (03/12/2025 11:04 AM CDT) Osmolality, U 138(L) 150 - 1150 mOsm/kg 03/12/2025 12:45 PM CDT DTL Urine 03/12/2025 11:0 4 AM CDT 03/12/2025 12:03 PM CDT us Jeremías Mehta M.D., Ph.D. LAB URINE ORDERA BLES Final Result Performing Organization Address City/[facility]/ZIP Co de Phone Number [facility] [place] [address] [place], [place] [id number] [place] [address] 200 [place] [address] * (ABNORMAL) Urinalysis, with Microscopic: Urine, Voided [...] ORDERA BLES Final Result Performing Organization Address City/[facility]/ZIP Co de Phone Number [facility] [place] [address] [place] [address], [facility] [address] [place] [address] * (ABNORMAL) Mycophenolic Acid (03/12/2025 9:42 AM CDT) Pathologist [facility] Mycophenolic Acid 4.5(H) 1.0 - 3.5 mcg/mL [...] developed and its performance characteristics determined by [facility] in a manner consistent with CLIA requirements. This test has not been cleared or approved by the U.S. Food and Drug Administration. Blood (Blood, Venous) 03/12/2025 9:42 AM CDT 03/12/2025 12:48 PM CDT Jeremías Mehta M.D., Ph.D. LAB BLOOD NON AD D-ON Final Result Performing Organization Address [facility] Co de Phone Number [facility] [address] [place] [address] [place] [address] [place] [address] * Sedimentation Rate (03/12/2025 9:42 AM CDT) Sedimentation Rate, B 8 2 - 22 mm/h 03/12/2025 11:33 AM CDT DTL Blood (Blood, Venous) 03/12/2025 9:42 AM CDT 03/12/2025 10:12 AM CDT Irma WalkerSAyah LAB BLOOD ADD-ON Fin al Result Performing Organization Address City/[facility]/ZIP Co de Phone Number [facility] [address] [place] [address], [place] [facility] [address] [place] [address] * (ABNORMAL) CBC with Differential, Blood (03/12/2025 [...] 9:42 AM CDT 03/12/2025 10:12 AM CDT us Jeremías Mehta M.D., Ph.D. LAB BLOOD ADD-ON Final Result [facility] [place] [address] [place] [address], [facility] DTL [facility] [address] [place] [address] [facility] [address] [place] [address] * CRP (C-Reactive Protein) (03/12/2025 9:42 AM CDT) C-Reactive Protein (CRP), S <3.0 <5.0 mg/L 03/12/2025 10:54 AM CDT DTL Blood (Blood, Venous) 03/12/2025 9:42 AM CDT 03/12/2025 10:28 AM CDT Irma WalkerS. LAB BLOOD ADD-ON Fin al Result Performing Organization Address [facility]/ZIP Co de Phone Number [facility] [place] [address] 200 [place] [address] * Uric Acid (03/12/2025 9:42 AM CDT) Pathologist [facility] Uric Acid, S 4.8 2.7 - 6.1 mg/dL 03/12/2025 10:54 AM CDT DTL Blood (Blood, Venous) 03/12/2025 9:42 AM CDT 03/12/2025 10:28 AM CDT Jeremías Mehta M.D., Ph.D. LAB BLOOD ADD-ON Final Result Performing Organization Address [facility] Co de Phone Number [facility] [place] [address] 200 [place] [address] * (ABNORMAL) Comprehensive Metabolic Panel (03/12/2025 9:42 [...] M.D., Ph.D. LAB BLOOD ADD-ON Final Result [facility] [place] [address] [place] [address], [place] DTL [facility] [address] [place] [address] * Antinuclear Antibodies, HEp-2 Substrate, IgG, Serum (03/12/2025 9:41 AM CDT) Antinuclear Ab, HEp-2 Substrate, S <1:80 (Negative ) <1:80 (Negativ e) 03/13/2025 2:41 PM CDT [facility] Comment: ----ADDITIONAL INFORMATION---- Method: Immunofluorescence using HEp-2 cellular substrate. Blood (Blood, Venous) 03/12/2025 9:41 AM CDT 03/12/2025 12:51 PM CDT Result [facility] Jeremías Mehta M.D., Ph.D. LAB BLOOD ADD-ON Final Result Performing Organization Address [facility] Co de Phone Number [facility] [address] [place] [address] [facility] [address] [place] [address] * (ABNORMAL) ANCA (Antineutrophil Cytoplasmic Antibodies) Vasculitis Panel (03/12/2025 9:41 AM CDT) Pathologist [facility] Myeloperoxidase Ab, S 0.9(H) <0.4 (Negative ) U 03/12/2025 1:21 PM CDT [facility] Comment:Interpretation: Equi vocal (0.4-0.9) Proteinase 3 Ab (PR3), S <0.2 <0.4 (Negative ) U 03/12/2025 1:21 PM CDT [facility] Blood (Blood, Venous) 03/12/2025 9:41 AM CDT 03/12/2025 12:26 PM CDT Jeremías Mehta M.D., Ph.D. LAB BLOOD ADD-ON Final Result Performing Organization Address City/[facility]/ZIP Co de Phone Number [facility] [address] [place] [address] [facility] [address] [place] [phone] * (ABNORMAL) Cytoplasmic Neutrophil Antibodies (03/12/2025 9:41 AM CDT) c-ANCA Negative Negative 03/14/2025 8:55 AM CDT [facility] Perinuclear (P-ANCA) Positive(A) Negative 8:55 AM CDT [facility] Comment: Equivocal for anti-MPO antibody by solid-phase immunoassay. pANCA pattern identified by immunofluorescence using ethanol-fixed neutrophils. Results consistent with testing performed on 08/30/2024. ----ADDITIONAL INFORMATION---- This test was developed and its performance characteristics determined by [facility] in a manner consistent with CLIA requirements. This test has not been cleared or approved by the U.S. Food and Drug Administration. Blood 03/12/2025 9:41 AM CDT 03/12/2025 1:28 PM CDT Jeremías Mehta M.D., Ph.D. LAB BLOOD ADD-ON Final Result [facility] [address] [place] [address] [facility] [address] [place] [address] [place] [address] * (ABNORMAL) Creatinine Clearance, Serum and 24 [...] AM CDT 03/12/2025 10:29 AM CDT Narrative [facility] [place] - 03/12/2025 1:21 PM CDT Specimen Information: Specimen ID: [id number] Specimen Type: Blood Specimen Collection Start Date: 03/12/2025 9:42 AM Specimen Received Date: 03/12/2025 10:29 AM Specimen ID: [id number] Specimen Type: Urine Specimen Collection Start Date: 03/12/2025 9:10 AM Specimen Received Date: 03/12/2025 12:20 PM Jeremías Mehta M.D., Ph.D. LAB URINE ORDERA BLES Final Result Performing Organization Address [facility] Co de Phone Number [facility] [place] [address] [place], [place] [phone] [place] [address] [place] [address] * (ABNORMAL) Protein, Total, 24 hour, Urine [...] ORDERA BLES Final Result Performing Organization Address [facility] [place] [address] * BI Breast Screening Bilateral with Tomosynthesis [...] benefit from supplementalscreening. ASSESSMENT: BI-RADS: 2: Benign. Soraya Garcia APRN, C.N.P., D.N.P. IMG BI PROCE DURES Final Result * (ABNORMAL) Lipid Panel (08/30/2024 9:48 AM CDT) Triglycerides 72 mg/dL 08/30/2024 10:55 AM CDT DTL Comment: ----REFERENCE VALUE---- Normal: <150 mg/dL Borderline High: 150-199 mg/dL High: 200-499 mg/dL Very High: > or =500 mg/dL Cholesterol, Total 220(H) mg/dL 2023 10:55 AM CDT DTL Comment: ----REFERENCE VALUE---- Desirable: < 200 mg/dL Borderline High: 200 - 239 mg/dL High: > or = 240 mg/dL Cholesterol, LDL, Calculated 125 mg/dL 08/30/2024 10:55 AM CDT DTL Comment: ----REFERENCE VALUE---- Desirable: <100 mg/dL Above Desirable: 100-129 mg/dL Borderline High: 130-159 mg/dL High: 160-189 mg/dL Very High: >=190 mg/dL ----ADDITIONAL INFORMATION---- LDL cholesterol calculated using the Beltrán/NIH equation. Cholesterol, HDL, S 82 >=50 mg/dL 08/30/2024 10:55 AM CDT DTL Cholesterol, Non-HDL, Calculated 138 mg/dL 08/30/2024 10:55 AM CDT DTL Comment: ----REFERENCE VALUE---- Desirable: <130 mg/dL Above Desirable: 130-159 mg/dL Borderline High: 160-189 mg/dL High: 190-219 mg/dL Very High: > or =220 mg/dL Fasting (8 HR or more) Yes 08/30/2024 9:50 AM CDT DTL Blood (Blood, Venous) 08/30/2024 9:48 AM CDT 08/30/2024 10:34 AM CDT Jeremías Mehta M.D., Ph.D. LAB BLOOD ADD-ON Final Result [facility] [address] [place] [address], [facility] Laboratories[facility] [address] [place] [address] * S-TSH (Thyroid-Stimulating Hormone - Sensitive) (08/30/2024 9:48 AM CDT) TSH, Sensitive 1.8 0.3 - 4.2 mIU/L 08/30/2024 11:17 AM CDT DTL Blood (Blood, Venous) 08/30/2024 9:48 AM CDT 08/30/2024 10:34 AM CDT Jeremías Mehta M.D., Ph.D. LAB BLOOD ADD-ON Final Result Performing Organization Address [facility] Co de Phone Number [facility] [place] [address] [place] [address], [facility] [address] [place] [address] * HPV with Genotyping, PCR, ThinPrep (08/22/2021 9:36 AM CDT) Specimen Source Thin Prep Vial, Cervix/Endoc ervix 08/26/2021 2:31 PM CDT DTL HPV High Risk type 16, PCR Negative Negative 08/26/2021 2:31 PM CDT DTL HPV High Risk type 18, PCR Negative Negative 08/26/2021 2:31 PM CDT DTL HPV other High Risk types, PCR Negative Negative 08/26/2021 2:31 PM CDT DTL Comment: The following Other High Risk HPV types were not detected: 31, 33, 35, 39, 45, 51, 52, 56, 58, 59, 66, and 68 This test was ordered in the context of a [facility] COMPUTED TOMOGRAPHY TECHNOLOGIST Cytology case; this result should be interpreted within the context of the COMPUTED TOMOGRAPHY TECHNOLOGIST cytology report. Varies 08/22/2021 9:36 AM CDT 08/22/2021 12:25 PM CDT Soraya Garcia APRN, C.N.P., D.N.P. LAB MICROBIOLOGY - GENERAL ORDERABLES Final Result Performing Organization Address City/[facility] Co de Phone Number [facility] [place] [address] [place] [address], [facility] [address] [place] [address] from Last 3 Months or Most Recently Relevant to Health Maintenance Insurance [facility] Care Teams Manuscript Reader Relationship Specialty Start Date End Date Elsewhere, Pcp PCP - General Family Medicine 07/11/21
[2025-03-25 23:06] VITALS: BP 167/76; PULSE 60; RESP 16; TEMP 36.8; O2SAT 96; BMI 22.8
--- NOTE | 2025-03-26 00:40 | ED.BACK ---
HPI - Back Pain/Injury General Time Seen by Provider: 00:41 Date Seen: 03/26/25 Chief Complaint: Back Injury/Pain Stated Complaint: Back inflammation and pain Time Seen by Provider: 03/26/25 00:39 Source: patient, RN notes reviewed and old records reviewed Mode of arrival: ambulatory Limitations: no limitations History of Present Illness HPI Narrative: 59-year-old female who presents today with back pain. Patient has a history of recurrent back pain which she describes as spasms. Current episode started 3 days ago and she describes tightness and spasms that are keeping her awake. She has taken Tylenol for this, also started on gabapentin 100 mg 3 times a day as well as starting prednisone 60 mg daily for the past 3 days. She has not had relief. She has not taken any muscle relaxants. No numbness or tingling in the legs, no bowel bladder incontinence, feels like she has some abdominal cramping as well. Related Data Home Medications ?Medication ?Instructions ?Recorded ?Confirmed candesartan 4 mg tablet 2 mg PO DAILY 12/12/22 03/25/25 estradiol 0.025 mg/24 hr 1 patch 12/12/22 10/09/24 semiweekly transdermal patch levothyroxine 50 mcg tablet mcg 12/12/22 10/09/24 progesterone micronized 100 mg 100 mg 12/12/22 10/09/24 capsule mycophenolate mofetil 250 mg 500 mg PO DAILY 10/09/24 03/25/25 capsule gabapentin 100 mg capsule 100 mg PO 3XD 03/25/25 03/25/25 prednisone 20 mg tablet mg PO 03/25/25 Previous Rx's ?Medication ?Instructions ?Recorded cyclobenzaprine 10 mg tablet 10 mg PO .COMPLEX #10 tabs 10/09/24 prednisone 10 mg tablet 10 mg PO DIRECTED #20 tabs 10/09/24 Allergies Allergy/AdvReac Type Severity Reaction Status Date / Time No Known Drug Allergies Allergy Verified 03/25/25 23:05 [facility] Social History Smoking Status: Never smoker How often do you have a drink containing alcohol: never AUDIT-C Alcohol total score: 0 Non-prescribed substance use: denies use Exam Narrative: Exam Narrative: General: Well-developed and well-nourished, no acute distress Head: Atraumatic and normocephalic Eyes: Pupils are equal reactive, extraocular motions intact, conjunctiva clear ENT: External nose and ears are normal, posterior pharynx without erythema or exudate Neck: No midline cervical tenderness, full spontaneous range of motion the neck, trachea midline, no adenopathy Heart: Regular rate and rhythm no murmurs or thrills Lungs: Clear to auscultation bilaterally without wheezes or crackles Abdomen: Soft, nontender, nondistended with active bowel sounds Musculoskeletal: Diffuse midthoracic and lumbar tenderness to palpation Neurologic: Awake, alert, and oriented x3, no gross focal neurologic deficits, cranial nerves intact as tested Psych: Mood and affect are appropriate Skin: No rashes Const: Vital Signs, click to edit/add: Vital Signs - 24 hr 03/25/25 23:06 Temperature 98.3 F Pulse Rate [Pulse Oximeter] 60 Respiratory Rate 16 Blood Pressure [Ri ght Upper Arm] 167/76 H Pulse Oximetry 96 Oxygen Delivery Me thod Room Air Course Course ED Course: Reviewed prior emergency department visit from October 2024 which was for back pain, at that time reported intermittent back pain since 2013, and describes as spasm which radiates across her back typically on the left, that time patient was started on prednisone. Patient presents today with 3 days of back pain which she describes as spasms and tightness. Has been taking prednisone and Tylenol for this as well as gabapentin. On exam here, awake alert, moves easily in the room, no bowel or bladder dysfunction, no saddle anesthesia, no decreased sensation or weakness of the extremities. Patient is resistant to try muscle relaxants, she is already on a high dose prednisone burst and taper. She can increase her gabapentin 200 mg 3 times a day which is still below the maximum daily dosing for her creatinine clearance. Will be discharged oxycodone Ativan help with symptom management. Decadron IM is given prior to discharge as well Did consider imaging including CT or MRI but not indicated as there is no trauma, no midline tenderness, no fever nor chills, no saddle anesthesia or bowel or bladder incontinence, history of acute on chronic back pain. Vital Signs Vital signs: Initial Vital Signs Temperature 98.3 F 03/25/25 23:06 Temperature Source Temporal Artery Scan 03/25/25 23:06 Pulse Rate 60 03/25/25 23:06 Respiratory Rate 16 03/25/25 23:06 Blood Pressure 167/76 H 03/25/25 23:06 Blood Pressure Mean 106 H 03/25/25 23:06 Blood Pressure Position Sitting 03/25/25 23:06 Pulse Oximetry 96 03/25/25 23:06 Oxygen Delivery Method Room Air 03/25/25 23:06 Vital Signs Temperature 98.3 F 03/25/25 23:06 Pulse Rate 60 03/25/25 23:06 Respiratory Rate 16 03/25/25 23:06 Blood Pressure 167/76 H 03/25/25 23:06 Pulse Oximetry 96 03/25/25 23:06 Oxygen Delivery Method Room Air 03/25/25 23:06 Temperature 98.3 F 03/25/25 23:06 Pulse Rate 60 03/25/25 23:06 Respiratory Rate 16 03/25/25 23:06 Blood Pressure 167/76 H 03/25/25 23:06 Pulse Oximetry 96 03/25/25 23:06 Oxygen Delivery Method Room Air 03/25/25 23:06 Discharge Plan Discharge Clinical Impression: Back pain, Back spasm, CKD (chronic kidney disease) stage 3, GFR 30-59 ml/min Patient Disposition: Home, Self-Care Instructions: Back Pain (ED) Additional Instructions: Take oxycodone and Ativan as needed for pain and muscle spasms. Do not take these at the same time, separate them by at least 1 hour to avoid over-sedation. You may increase her gabapentin to 200 mg 3 times a day Continue prednisone taper Activity Level: Activity as Tolerated Discharge Diet: Regular Prescriptions: No Action cyclobenzaprine 10 mg tablet 10 mg PO .COMPLEX Qty: 10 0RF Rx Instructions: 1/2 to 1 tablet q8h prn pain. prednisone 10 mg tablet 10 mg PO DIRECTED Qty: 20 0RF Rx Instructions: For p.o. as single dose x2 days, then 3 p.o. as single dose x2 days, then 2 p.o. as single dose x2 days, then 1 p.o. x2 days, then discontinue. prednisone 20 mg tablet PO gabapentin 100 mg capsule 100 mg PO 3XD candesartan 4 mg tablet 2 mg PO DAILY levothyroxine 50 mcg tablet progesterone micronized 100 mg capsule 100 mg estradiol 0.025 mg/24 hr patch semiweekly 1 patch Patient Comments: APPLY 1 PATCH TOPICALLY TO THE SKIN 2 TIMES A WEEK mycophenolate mofetil 250 mg capsule 500 mg PO DAILY Follow Up/Referrals: Marjan Angulo PA [Primary Care Provider, Family Practice] Stand Alone Forms: [employer] Info Instructions
[2025-03-26] MEDS: DEXAMETHASONE 10 MG/ML PF IM (01:03)
--- OUTSIDE RECORDS SUMMARY | 2025-03-26 01:04 | XMS_ITS | Clinical Summary ---
Author Organization [facility] Address [address] [place] [address] Care Team Providers Care Caddie Supervisor Name Role Phone Summer Mendoza DO Primary Care Provider [phone] Allergies Active Allergy Reactions Criticality Noted Date [...] 02/16/2025 9:40 AM CDT Nurse/Clinic Staff Only [facility] [address] [place] [address] Blood Pressure (125/72) 02/16/2025 Travel 02/07/2025 Refill [facility] [address] [place] [address] Summer Mendoza DO Refill Request (Candesartan) from Last 3 Months Immunizations Immunization Administration Dates Next Due AMB Influenza, IIV3 (Age >=3 years)(Flu Clinic Only) 09/02/2012 COVID-19 vaccine ([employer] 30mcg/0.3mL) 12YO+ BIVALENT PF, MDV 07/17/2022 Hepatitis [...] on file Legal Sex Female 6:19 AM DRAW HAND Gender Identity Not on file Sexual Orientation Not on file Obstetrics History Last Filed Vital Signs Vital Sign Reading Time Taken Comments Blood Pressure 125/72 02/16/2025 9:49 AM CDT Pulse 79 02/16/2025 9:49 AM CDT Temperature 36.6 C (97.9 F) 06/06/2021 2:14 PM CDT Respiratory Rate 14 04/15/2017 5:30 PM CDT Oxygen Saturation 100% 10/16/2024 11:28 AM DRAW HAND Inhaled Oxygen Concentration - - Weight 55.5 kg (122 lb 6.4 oz) 10/16/2024 11:28 AM DRAW HAND Height 156.5 cm (5' 1.61) 10/16/2024 11:[address] Body Mass Index 22.67 10/16/2024 11:28 AM DRAW HAND Plan of Treatment Health Maintenance Due Date Last Done Comments HIV for age 15-65 1979 Zoster (shingles) series for age 50+ (1 of 2) 1983 Mammogram for age 45-75 08/22/2022 08/22/20 21 (Completed outside of [facility]), 08/09/2020 (Completed outside of [facility]), 06/23/2019 (Completed outside of [facility]), Additional history exists RSV vaccine for adults or (1 - Risk 60-74 years 1-dose series) 2024 Pap test for age 21-65 08/22/2024 (Completed outside of [facility]), 06/20/2018 (Completed outside of [facility]), 06/01/2017 (Completed outside of [facility]), Additional history exists Depression screening for age [...] (ABNORMAL) LIPID PANEL W REFLEX MEASURED LDL [[id number]] (07/18/2024 1:58 PM CDT) CHOLESTEROL, TOTAL 213(H) [...] estimation of LDL-C. Hernandez SS et al. ALBRET. 2013;310(19): 8469-7986 (http://education.[employer].Vputi/faq/VSV459) CHOL/HDLC RATIO 2.8 <5.0 (calc) [facility] [...] us Summer Mendoza DO CHEMISTRY Final Result [facility] [address] [place] [address], [facility] [address] [place] [address] * ANTI HCV (07/19/2019 4:48 PM CDT) HEPATITIS C ANTIBODY Non-React johanna Non-React johanna 07/20/2019 2:12 PM CDT [facility] Comment:Antibodies to HCV no t detected; does not exclude the possibility of exposure to HCV. Blood BLOOD SPECIMEN / Unknown Venipuncture / Unknown 07/19/2019 4:48 PM CDT 07/19/2019 4:51 PM CDT us Marjan THOMPSON SEND OUTS Final Resu lt [facility] [address] [place] [address], [place] from Last 3 Months or Most Recently Relevant to Health Maintenance Insurance [facility] Care Teams Caddie Supervisor Relationship Specialty Start Date End Date Summer Mendoza DO [address] [place] [address] PCP - General Family Practice 06/11/23
--- OUTSIDE RECORDS SUMMARY | 2025-03-26 01:04 | XMS_ITS | Clinical Summary ---
Author Organization [facility] Address [address] [place] [address] Care Team Providers Care Office Technologist Name Role Phone Elsewhere, Pcp Primary Care Provider Unavailabl e Source Comments Patient records contain information from all sites at [facility]. For routine questions regarding patient records, call [phone] during business hours, M-F 8:00 AM - 5:00 PM Central Time. Record requests for emergency care only can be directed to [phone] at any time.[facility] Allergies No known active allergies Medications [...] by mouth daily. 03/20/20 16 Active omega 7-til-eti-fish oil 1,200 (144-216) mg capsule 01/31/20 20 [...] Encounter Department of Laboratory Medicine and Pathology, [place], [place] [address] [place] [phone] Jeremías Mehta M.D., Ph.D. 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) Discharge Disposition: Home or Self Care 03/12/2025 9:00 AM CDT - 03/12/2025 9:09 AM CDT Hospital Encounter Department of Laboratory Medicine and Pathology, [place], [place] [address] [place] [phone] Jeremías Mehta M.D., Ph.D. 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) Discharge Disposition: Home or Self Care 02/23/2025 10:42 AM CDT - 02/23/2025 11:59 PM CDT Hospital Encounter Department of Laboratory Medicine and Pathology, [place], [place] [address] [place] [phone] Jeremías Mehta M.D., Ph.D. 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) Discharge Disposition: Home or Self Care 02/23/2025 10:00 AM CDT - 02/23/2025 10:41 AM CDT Hospital Encounter Department of Radiology in [place], [place] [address] [place] [phone] Soraya Garcia APRN, C.N.P., D.N.P. [facility] Health Adult Discharge Disposition: Home or Self Care 02/23/2025 9:15 AM CDT Office Visit Department of Obstetrics and Gynecology in [place], [place] [address] [place] [address] Soraya Garcia APRN, C.N.P., D.N.P. Counseling Hormone Replacement Therapy (Primary Dx); Atrophy Vagina Due To Estrogen Deficiency 02/20/2025 8:45 AM CDT Clinical Communication Virtual Review in [place], [place] [address] [place] [address] Pre-visit Intake from Last 3 Months Immunizations [...] [place] Hyperlipidemia Maternal Grandmother 1 Pamela Melbeta Hyperlipidemia Maternal Grandmother 2 Pamela Kal Hypertension Mother 1 Bhumi Mike Hypertension Mother 2 Bhumi Mike Dementia Paternal Grandmother 1 Teri Mike Dementia Paternal Grandmother 2 Teri Mike Relation Name Status Comments Maternal Grandfather 1 Kevin Melbeta Maternal Grandfather 2 Kevin Melbeta Alive Maternal Grandmother 1 Pamela Melbeta Maternal Grandmother 2 Pamela Kal Alive Mother 1 Bhumi Mike Mother 2 Bhumi Mike Alive Paternal Grandmother 1 Teri Mike Paternal Grandmother 2 Teri Mike Alive Social History Tobacco Use Types Packs/Day Years Used Date Smoking Tobacco: Never Passive Smoke Exposure: Past Smokeless Tobacco: Never Alcohol Use Standard Drinks/Week Comments Never 0 (1 standard drink = 0.6 oz pur e alcohol) [facility] Utilities Answer Date Recorded In the past 12 months has [facility] [employer], oil, or [employer] threatened to shut off services in your [...] week 09/23/2022 How often do you attend buddhism or gnosticist serv ices? Never 09/23/2022 Do you belong to any clubs o r organizations such as buddhism groups, unions, fraternal or athletic groups, or [...] hard at all 10/03/2023 [facility] of Occupat ional Health - Occupational Stress [...] your living situation today? I have a [facility] place to live 02/18/2025 Education Answer Date Recorded What is the highest level of school you have completed or the highest degree you have received? 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 [address] [place] [phone] Health Maintenance Due Date Last Done Comments [...] this topic Medical Devices Implanted Type Area Lease Examiner Device Identifier Shelf Expiration Date Model / [...] LAB URINE ORDERA BLES Final Result [facility] [address] [place] [address], [facility] [address] [place] [address] * Microscopic Automated (03/12/2025 11:04 AM CDT) [...] Ph.D. LAB URINE ORDERA BLES Final Result [facility] [address] [place] [address] * pH, Urine (03/12/2025 11:04 AM CDT) pH, U 6.9 4.5 - 8.0 03/12/2025 12: 45 PM CDT DTL Urine 03/12/2025 11:0 4 AM CDT 03/12/2025 12:03 PM CDT Result [facility] Jeremías Mehta M.D., Ph.D. LAB URINE ORDERA BLES Final Result [facility] [address] [place] [address] * (ABNORMAL) Osmolality, Urine (03/12/2025 11:04 AM CDT) Osmolality, U 138(L) 150 - 1150 mOsm/kg 03/12/2025 12:45 PM CDT DTL Urine 03/12/2025 11:0 4 AM CDT 03/12/2025 12:03 PM CDT us Jeremías Mehta M.D., Ph.D. LAB URINE ORDERA BLES Final Result Performing Organization Address City/[facility]/ZIP Co de Phone Number [facility] [address] [place], [place] [id number] [place] [address] [address] [place] [address] * (ABNORMAL) Urinalysis, with Microscopic: Urine, Voided [...] ORDERA BLES Final Result Performing Organization Address City/[facility]/ZIP Co de Phone Number [facility] [address] [place] [address], [facility] [address] [place] [address] * (ABNORMAL) Mycophenolic Acid (03/12/2025 9:42 AM CDT) Pathologist [facility] Mycophenolic Acid 4.5(H) 1.0 - 3.5 mcg/mL [...] developed and its performance characteristics determined by [facility] in a manner consistent with CLIA requirements. This test has not been cleared or approved by the U.S. Food and Drug Administration. Blood (Blood, Venous) 03/12/2025 9:42 AM CDT 03/12/2025 12:48 PM CDT Jeremías Mehta M.D., Ph.D. LAB BLOOD NON AD D-ON Final Result Performing Organization Address [facility] Co de Phone Number [facility] [address] [place] [place] [address] [place] [address] * Sedimentation Rate (03/12/2025 9:42 AM CDT) Sedimentation Rate, B 8 2 - 22 mm/h 03/12/2025 11:33 AM CDT DTL Blood (Blood, Venous) 03/12/2025 9:42 AM CDT 03/12/2025 10:12 AM CDT Irma WalkerSAyah LAB BLOOD ADD-ON Fin al Result Performing Organization Address City/[facility]/ZIP Co de Phone Number [facility] [address] [place] [address], [place] [facility] [address] [place] [address] * (ABNORMAL) CBC with Differential, Blood (03/12/2025 [...] M.D., Ph.D. LAB BLOOD ADD-ON Final Result [facility] [address] [place] [address], [facility] DTL [facility] [address] [place] [address] [facility] [address] [place] [address] * CRP (C-Reactive Protein) (03/12/2025 9:42 AM CDT) C-Reactive Protein (CRP), S <3.0 <5.0 mg/L 03/12/2025 10:54 AM CDT DTL Blood (Blood, Venous) 03/12/2025 9:42 AM CDT 03/12/2025 10:28 AM CDT Irma WalkerS. LAB BLOOD ADD-ON Fin al Result Performing Organization Address [facility]/ZIP Co de Phone Number [facility] [address] [place] [address] * Uric Acid (03/12/2025 9:42 AM CDT) Pathologist [facility] Uric Acid, S 4.8 2.7 - 6.1 mg/dL 03/12/2025 10:54 AM CDT DTL Blood (Blood, Venous) 03/12/2025 9:42 AM CDT 03/12/2025 10:28 AM CDT Jeremías Mehta M.D., Ph.D. LAB BLOOD ADD-ON Final Result Performing Organization Address [facility] Co de Phone Number [facility] [address] [place] [address] * (ABNORMAL) Comprehensive Metabolic Panel (03/12/2025 9:42 [...] M.D., Ph.D. LAB BLOOD ADD-ON Final Result [facility] [address] [place] [address], [place] DTL [facility] [address] [place] [address] * Antinuclear Antibodies, HEp-2 Substrate, IgG, Serum (03/12/2025 9:41 AM CDT) Antinuclear Ab, HEp-2 Substrate, S <1:80 (Negative ) <1:80 (Negativ e) 03/13/2025 2:41 PM CDT [facility] Comment: ----ADDITIONAL INFORMATION---- Method: Immunofluorescence using HEp-2 cellular substrate. Blood (Blood, Venous) 03/12/2025 9:41 AM CDT 03/12/2025 12:51 PM CDT Result [facility] Jeremías Mehta M.D., Ph.D. LAB BLOOD ADD-ON Final Result Performing Organization Address [facility] Co de Phone Number [facility] [address] [place] [address] [facility] [address] [place] [address] * (ABNORMAL) ANCA (Antineutrophil Cytoplasmic Antibodies) Vasculitis Panel (03/12/2025 9:41 AM CDT) Pathologist [facility] Myeloperoxidase Ab, S 0.9(H) <0.4 (Negative ) U 03/12/2025 1:21 PM CDT [facility] Comment:Interpretation: Equi vocal (0.4-0.9) Proteinase 3 Ab (PR3), S <0.2 <0.4 (Negative ) U 03/12/2025 1:21 PM CDT [facility] Blood (Blood, Venous) 03/12/2025 9:41 AM CDT 03/12/2025 12:26 PM CDT Jeremías Mehta M.D., Ph.D. LAB BLOOD ADD-ON Final Result Performing Organization Address City/[facility]/ZIP Co de Phone Number [facility] [address] [place] [address] [facility] [address] [place] [address] * (ABNORMAL) Cytoplasmic Neutrophil Antibodies (03/12/2025 9:41 AM CDT) c-ANCA Negative Negative 03/14/2025 8:55 AM CDT [facility] Perinuclear (P-ANCA) Positive(A) Negative 8:55 AM CDT [facility] Comment: Equivocal for anti-MPO antibody by solid-phase immunoassay. pANCA pattern identified by immunofluorescence using ethanol-fixed neutrophils. Results consistent with testing performed on 08/30/2024. ----ADDITIONAL INFORMATION---- This test was developed and its performance characteristics determined by [facility] in a manner consistent with CLIA requirements. This test has not been cleared or approved by the U.S. Food and Drug Administration. Blood 03/12/2025 9:41 AM CDT 03/12/2025 1:28 PM CDT Jeremías Mehta M.D., Ph.D. LAB BLOOD ADD-ON Final Result [facility] [address] [place] [address] [facility] [address] [place] [address] [place] [address] * (ABNORMAL) Creatinine Clearance, Serum and 24 [...] AM CDT 03/12/2025 10:29 AM CDT Narrative [facility] - 03/12/2025 1:21 PM CDT Specimen Information: Specimen ID: [id number] Specimen Type: Blood Specimen Collection Start Date: 03/12/2025 9:42 AM Specimen Received Date: 03/12/2025 10:29 AM Specimen ID: [id number] Specimen Type: Urine Specimen Collection Start Date: 03/12/2025 9:10 AM Specimen Received Date: 03/12/2025 12:20 PM Jeremías Mehta M.D., Ph.D. LAB URINE ORDERA BLES Final Result Performing Organization Address [facility] Co de Phone Number [facility] [address] [place], [place] [phone] [place] [address] [place] [address] * (ABNORMAL) Protein, Total, 24 hour, Urine [...] ORDERA BLES Final Result Performing Organization Address [facility] [place] [address] * BI Breast Screening Bilateral with Tomosynthesis [...] Ph.D. LAB BLOOD ADD-ON Final Result [facility] [address] [place] [address], [facility] [address] [place] [address] * S-TSH (Thyroid-Stimulating Hormone - Sensitive) (08/30/2024 9:48 AM CDT) TSH, Sensitive 1.8 0.3 - 4.2 mIU/L 08/30/2024 11:17 AM CDT DTL Blood (Blood, Venous) 08/30/2024 9:48 AM CDT 08/30/2024 10:34 AM CDT Jeremías Mehta M.D., Ph.D. LAB BLOOD ADD-ON Final Result Performing Organization Address [facility] Co de Phone Number [facility] [address] [place] [address], [facility] [address] [place] [address] * HPV with Genotyping, PCR, ThinPrep (08/22/2021 [...] was ordered in the context of a [facility] HISTOLOGY MANAGER Cytology case; this result should be interpreted within the context of the HISTOLOGY MANAGER cytology report. Varies 08/22/2021 9:36 AM CDT 08/22/2021 12:25 PM CDT Soraya Garcia APRN, C.N.P., D.N.P. LAB MICROBIOLOGY - GENERAL ORDERABLES Final Result Performing Organization Address City/[facility] Co de Phone Number [facility] [address] [place] [address], [facility] [address] [place] [address] from Last 3 Months or Most Recently Relevant to Health Maintenance Insurance [facility] Care Teams Office Technologist Relationship Specialty Start Date End Date Elsewhere, Pcp PCP - General Family Medicine 07/11/21
[2025-03-26 01:24] VITALS: BP 145/74; PULSE 68; RESP 16; TEMP 36.8; O2SAT 96
[2025-03-26 01:25] VITALS: BP 145/74; PULSE 68; RESP 16; TEMP 36.8
== END 2025-03-26 01:25 | disposition home or self-care (01) ==
LOC: ED 03-26 01:02
PROVIDERS: Emergency Provider Family Medicine; PCP Physician Assistant
DX: M54.9 Dorsalgia, unspecified (principal); M62.830 Muscle spasm of back; N18.30 Chronic kidney disease, stage 3 unspecified; Z79.52 Long term (current) use of systemic steroids; Z79.899 Other long term (current) drug therapy
CPT/HCPCS: 96372; 99284; J1100

== ENCOUNTER 2025-08-17 07:47 | Outpatient (CLI) | payer OTHER, SELFPAY ==
--- NOTE | 2025-08-17 09:03 | P.ANES_ITS ---
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
--- NOTE | 2025-08-17 09:03 | W.ANESCHARGE ---
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
== END 2025-08-17 07:48 | disposition home or self-care (01) ==
LOC: OP CLINIC 07:48
PROVIDERS: PCP Family Medicine; Visit Provider Internal Medicine Gastroenterology
DX: Z12.11 Encounter for screening for malignant neoplasm of colon (principal)
CPT/HCPCS: 00812; 45378; J2704